=== PATIENT | female | born 1935 | race Caucasian/White ===

== ENCOUNTER 2021-06-24 02:56 | Outpatient (RCR) | payer MEDICARE, MEDICAID, SELFPAY ==
[2021-06-24] MEDS: Normal Saline Flush 10 ML SYR IVP (09:00)
[2021-06-24 09:34] LABS: Abs Immature Grans 0.15 10^3/uL (0.0-0.06); Absolute Basophil Count 0.06 10^3/uL (0.0-0.2); Absolute Eosinophil Count 0.06 10^3/uL (0.0-0.7); Absolute Lymphocyte Count 1.66 10^3/uL (1.2-3.4); Absolute Monocyte Count 1.03 10^3/uL (0.1-0.8); Absolute Neutrophil Count 2.64 10^3/uL (1.2-6.7); Basophils % 1.1; Eosinophils % 1.1; HCT 40.1 % (36.0-46.0); Immature Grans % 2.7; Lymphocytes % 29.6; MCH 30.2 pg (27.0-33.0); MCHC 32.4 % (32.0-36.0); MPV 9.7 fL (8.0-11.0); Monocytes % 18.4; Neutrophils % 47.1; Nucleated RBC 0 %; Platelet Count 271 10^3/uL (130-400); RBC 4.31 10^6/uL (3.93-5.22); RDW 13.6 % (11.7-14.6); RDW-SD 46.5 fL
[2021-06-24 10:15] LABS: Magnesium 1.7 mg/dL (1.8-2.4)
[2021-06-24 10:27] LABS: ALT 28 U/L (14-59); AST 20 U/L (15-37); Albumin 3.3 g/dL (3.4-5.0); Alkaline Phosphatase 88 U/L (46-116); Anion Gap 8.7 mmol/L (3-11); BUN 22 mg/dL (7-18); Bilirubin, Total 0.5 mg/dL (0.2-1.0); CO2 26.3 mmol/L (21.0-32.0); CREATININE 0.7 mg/dL (0.55-1.02); Calcium 9.2 mg/dL (8.5-10.1); Chloride 107 mmol/L (98-107); FREE T4 1.39 ng/dL (0.76-1.46); Glucose 112 mg/dL (74-106); Potassium 4.1 mmol/L (3.5-5.1); Sodium 142 mmol/L (136-145); TSH 1.58 uIU/mL (0.36-3.74); Total Protein 6.8 g/dL (6.4-8.2)
== END 2021-06-25 23:59 | disposition home or self-care (01) ==
LOC: INF 02:56
PROVIDERS: PCP Internal Medicine; Visit Provider Internal Medicine Medical Oncology
DX: C34.92 Malignant neoplasm of unspecified part of left bronchus or lung (principal); Z79.899 Other long term (current) drug therapy; Z45.2 Encounter for adjustment and management of vascular access device
CPT/HCPCS: 36591; 80053; 83735; 84439; 84443; 85025

== ENCOUNTER 2021-07-15 03:40 | Outpatient (RCR) | payer MEDICARE, MEDICAID, SELFPAY ==
--- OUTSIDE RECORDS SUMMARY | 2021-07-15 03:44 | XMS_ITS | Encounter Summary ---
:1935 Author Care Team Providers Name Role Phone Thaddeus Willis DO Primary Care Provider [phone] Michelle Peña MD Electrocardiograph Operator [phone] Rowdy Rose MD General Surgeon [phone] Demetrio Lao MD General Surgeon [phone] Reason for Visit None recorded. Assessment and Plan 1. Atherosclerosis of coronary a rtery without angina pectoris Cath in 1994 showed 65% RCA le mikki. Treated medically. She's not had recent chest pain. With new chest pain which is none exerti onal. She does have exertional dyspnea. She cannot walk far due to fatigue, has been off balance and has been unwilling to associate with anyone. ? nitroglycerin 0.4 mg subli ngual tablet ? electrocardiogram ? circuit rider referral - Yen paredes seen by Dr. Garza 2004 2. Dizziness He benefits from meclizine for this. Also refer her to physical therapy. ? meclizine 25 mg tablet ? physical therapist referra l 3. Dyspnea We will check labs to assess h er breathing difficulty. ? BNP (B-type natriuretic pe ptide), prohormone N-terminal, quant, immunoassay, blood ? CRP, high sensitivity, ser um or plasma ? CBC w/ auto diff 4. Disorder of vitamin B12 Does complain of some peripher al neuropathy and will check a B12 level. ? vitamin B12, serum 5. Nausea and vomiting We will assess this further wi th liver and pancreatic enzyme levels. ? CMP, serum or plasma ? lipase, serum or plasma 6. Hyponatremia NB: Sodium came back dangerous ly low at 118 mg/dL. She was referred to the emergency department. Discussion Note: None recorded.Patient educational handouts: No information available. Plan of Care Reminders Provider Appointments Consult 40 Michelle Hussein 07/17/2021 MD [place] 2:40PM ? Awv 40 Thaddeus Contreras DO 08/20/2021 10:40AM Lab BNP (B-type [facility] Natriuretic Peptide), 04/30/2021 Hospital L ab (Internal) Prohormone N-terminal, Quant, Immunoassay, Blood ? CRP, High [place] [facility] Sensitivity, Serum or Plasma 04/30/2021 Hos pital Lab (Internal) ? Vitamin B12, Serum [facility] 04/30/2021 Hospital Lab (In [facility]) ? CBC W/ Auto Diff [facility] 04/30/2021 Hospital Lab (In [facility]) ? CMP, Serum or [facility] Plasma 04/30/2021 Hospital Lab (In [facility]) ? Lipase, Serum or [facility] Plasma 04/30/2021 Hospital Lab (In [facility]) Referral Electrocardiograph Operator Cuate Stoll MD Referral 04/30/2021 ? Physical Therapist [facility] Referral 04/30/2021 [facility] Re[facility] Services Procedures None recorded. ? ? Surgeries None recorded. ? ? Imaging Electrocardiogram [facility] 04/30/2021 [place] Medications Name Start Date ? ? amlodipine 2.5 mg tablet 05/02/2021 1 tablet every day by oral route for 90 days. aspirin 81 mg chewable tablet 05/08/2021 Chew 1 tablet every day by oral route. atorvastatin 40 mg tablet 05/02/2021 2 tablets every day by oral route for 90 days. clopidogrel 75 mg tablet ? TAKE ONE TABLET BY MOUTH EVERY DAY Colace 100 mg capsule ? Take 1 capsule every day by oral route as needed. duloxetine 60 mg capsule,delayed release ? TAKE ONE CAPSULE BY MOUTH EVERY DAY gabapentin 300 mg capsule 05/02/2021 1 capsule 3 times a day by oral route for 90 days. Glucosamine Chondroit Complx Advan 750 mg-100 mg-125 m g-1.65 mg tablet 05/02/2021 Take 1 tablet every day by oral route. levothyroxine 88 mcg tablet 05/02/2021 1 tablet every day by oral route for 90 days. loperamide 2 mg capsule 05/24/2021 Take 1 capsule every day by oral route as needed. lorazepam 0.5 mg tablet ? TAKE ONE TABLET BY MOUTH AT BEDTIME NEEDED metoprolol succinate ER 100 mg tablet,extended release 24 hr ? TAKE ONE TABLET BY MOUTH EVERY DAY metoprolol succinate ER 50 mg tablet,extended release 24 hr ? Take 1 tablet every day by oral route. Nexium 40 mg capsule,delayed release ? TAKE ONE CAPSULE BY MOUTH TWICE A DAY nitroglycerin 0.4 mg sublingual tablet 05/02/2021 1 tablet as needed by sublingual route. polyethylene glycol 3350 17 gram/dose oral powder 05/2021 Take 17 g by oral route as directed for 7 days. urea 15 gram oral powder packet 05/08/2021 Take 1 packet twice a day by oral route for 120 days. Vitamin B-12 1,000 mcg tablet 05/02/2021 Take 1 tablet by oral route for 30 days. Notes: 06/06/21 Med Rec Medications Administered None recorded. Vitals Height Weight BMI Blood Pressure 5 ft 1 in 135 lbs 25.5 kg/m2 140/70 mm[Hg] Results Lab Results Date Name Specimen Result Interpretation Description Value Range Status Address ? 04/30/2021 CBC W/ Auto BLD ? Wbc 7.1 5.0-10.0 Final [place] Diff 10*3/uL 10*3/uL [facility] L ab (Internal) : [address] ? ? BLD ? Rbc 4.84 4.10-5.30 Final [place] 10*6/uL 10*6/uL [facility] (Internal) : [address] ? ? BLD ? Hgb 14.6 12.0-16.0 Final [place] g/dL g/dL [facility] (Internal) : [address] ? ? BLD ? Hct 42.8 % 37.0-47.0 Final [facility] L [facility] (Internal) : [address] ? ? BLD ? Mcv 88.4 fL 80.0-96.0 Final [place] fL [facility] (Internal) : [address] ? ? BLD ? Mch 30.2 pg 26.0-32.0 Final [place] pg [facility] (Internal) : [address] ? ? BLD ? Mchc 34.1 31.0-35.0 Final [place] g/dL g/dL [facility] (Internal) : [address] ? ? BLD ? Rdw 12.1 % 11.5-14.5 Final [facility] L [facility] (Internal) : [address] ? ? BLD ? Plt 447 130-450 Final [place] 10*3/uL 10*3/uL [facility] L [facility] (Internal) : [address] ? ? BLD ? Anc 3.91 ? Final [place] 10*3/uL [facility] (Internal) : [address] ? ? BLD ? Nlr 1.71 0.00-3.20 Final [facility] (Internal) : [address] ? ? BLD ? Neutro 55.0 % 40.0-75.0 Final [facility] L [facility] (Internal) : [address] ? ? BLD ? Lymph 32.3 % 20.0-50.0 Final [facility] L [facility] (Internal) : [address] ? ? BLD ? [place]cock 9.4 % 2.0-10.0 Final [facility] L [facility] (Internal) : [address] ? ? BLD ? Eos 2.4 % 1.0-6.0 % Final [facility] (Internal) : [address] ? ? BLD ? Baso 0.6 % 0.0-1.0 % Final [facility] (Internal) : [address] ? ? BLD ? Ig 0.3 % 0.0-0.9 % Final [facility] (Internal) : [address] 04/30/2021 CRP, High S ? Rcrp <0.10 0.10-0.30 Final [place] Sensitivity, mg/dL mg/dL Coun try Serum or Hospital Lab Plasma (Internal) : [address] 04/30/2021 Lipase, Serum S ? Lip 136 U/L 23-300 [facility] [place] or Plasma U/L [facility] (Internal) : [address] t 04/30/2021 CMP, Serum or S ? g/r 98 mg/dL 74-106 Jeny l [place] Plasma mg/dL [facility] (Internal) : [address] ? ? S ? Bun 8 mg/dL 7-17 Final [place] mg/dL [facility] (Internal) : [address] ? ? S ? Crea 0.60 0.52-1.04 [facility] mg/dL mg/dL [facility] (Internal) : [address] t ? ? S ? Ca 9.4 8.4-10.2 [facility] mg/dL mg/dL [facility] (Internal) : [address] t ? ? S CRITICAL Na 118 137-145 [facility] LOW mmol/L mmol/L [facility] (Internal) : [address] ? ? S ? K 5.0 3.5-5.1 [facility] mmol/L mmol/L [facility] (Internal) : [address] ? ? S Low Cl 84 98-107 [facility] mmol/L mmol/L [facility] (Internal) : [address] ? ? S ? Tco2 26.0 22.0-30.0 [facility] mmol/L mmol/L [facility] (Internal) : [address] ? ? S ? Tp 6.9 g/dL 6.3-8.2 [facility] g/dL [facility] (Internal) : [address] ? ? S ? Alb 4.1 g/dL 3.5-5.0 [facility] [place] g/dL [facility] (Internal) : [address] ? ? S ? Tbil 0.8 0.2-1.3 [facility] mg/dL mg/dL [facility] (Internal) : [address] ? ? S ? Alp 73 U/L 38-126 [facility] U/L [facility] (Internal) : [address] ? ? S ? Alt 23 U/L 9-52 U/L [facility] (Sgpt) [facility] (Internal) : [address] ? ? S High Ast 40 U/L 14-36 U/L [facility] (Sgot) [facility] (Internal) : [address] 04/30/2021 BNP (B-type S ? Nt-prob 232 0-450 [facility] Natriuretic suspect artist supervisor pg/mL pg/mL Count ry Peptide), Hospita l Lab Prohormone (Inter nal): N-terminal, [address], [place] Immunoassay, Blood 04/30/2021 Vitamin B12, S ? Vit B12 650.0 239.0-931 Fi nal [place] Serum pg/mL .0 pg/mL [facility] L [facility] (Internal) : [address] Allergies Code Code System Name Reaction Severity Onset Penicillins ? ? ? 126096 RxNorm Prilosec Abdominal Pain ? ? Problems Name Status Onset Date Source ? Dysphagia Active 07/26/2018 ? Hiatal Hernia Active 07/21/2019 ? Hypertensive Disorder Active 05/03/2020 ? Small Cell Carcinoma Active 05/21/2021 ? Hypothyroidism Active ? History Hyperlipidemia Active ? History Depressive Disorder Active ? History Insomnia Active ? History Supraventricular Tachycardia Active ? His tory Irritable Bowel Syndrome with Diarrhea Active ? History Arthropathy Active ? History Atherosclerosis of Coronary Artery Active ? History without Angina Pectoris Bilateral Carpal Tunnel Syndrome Active ? History Procedures Date Name Performed by ? 05/02/2021 Biopsy of Lung Information not avai lable Notes: small cell carcinoma 04/09/2020 Egd Information not avai lable Notes: acute esophagitis; 08/19/2018 Hiatal hernia 08/19/2018 Colonoscopy Information not avai lable Notes: Diverticular disease; 4: 01/04/2009: 11/27/2004 07/02/2010 Cataract Surgery Information not avai lable Notes: bilateral ? Hernia Repair Inguinal Information not a vailable Notes: [id number], 1989 ? Total Hysterectomy Information not avai lable Notes: with MMK? 1998 ? Appendectomy Information not avai lable Notes: [id number] ? Tubal Ligation Information not avai lable Notes: 1966 04/12/2021 XR, Esophagram [facility] (Internal) [address] [place] [address] (Work Place) 04/22/2021 XR, Esophagram [facility] (Internal) [address] [place] [address] (Work Place) 04/30/2021 Electrocardiogram [facility] [address] [place] [address] ([address]) Vaccine List Vaccine Type COVID-19, mRNA, LNP-S, PF, 100 mcg/0.5 m L dose 11/26/2020 12/26/2020 07/09/2021?0.5 mL influenza, high dose seasonal 08/28/2016?0.5 mL 09/11/2017?0.5 mL influenza, injectable, quadrivalent 07/26/2020 influenza, seasonal, injectable 08/27/2005 08/30/2007 08/09/2008 10/11/2009 09/08/2015?0.5 mL influenza, seasonal, injectable, preserv ative free 11/04/2010?0.5 mL 08/12/2011?0.5 mL 10/20/2012?0.5 mL 09/05/2013?0.5 mL 08/29/2014?0.5 mL influenza, trivalent, adjuvanted 09/07/2018?0.5 mL 07/21/2019?0.5 mL pneumococcal conjugate PCV 13 11/19/2015?0.5 mL pneumococcal polysaccharide PPV23 06/26/2003 Td (adult), adsorbed 02/24/2000 Tdap 05/26/2012?0.5 mL Social History Tobacco Smoking Status Former Smoker Notes: Quit in 1994, smoked 1ppd x25 years Are you currently employed? N Have you used IV drugs? N Are you blind or do you have N Notes: c orrective lenses/ difficulty seeing? reading What is your code status? 0 What was the date of your most 04/30/2021 recent tobacco screening? Do you have an advanced directive? N Do you feel safe at home? Y What is your exercise level? Occasional Notes: s hort walks Did the fall result in an injury? Y Note s: right ankle bruise Live alone or with others? alone Notes: wid owed What is your level of alcohol Moderate Notes: 2-3 beer or wine daily consumption? Which of your hands is dominant? Right Animal exposure? N Education 10 Are you passively exposed to N smoke? Hard of hearing or deaf in one or N both ears? What is your level of caffeine Moderate Notes: 1 soda daily, 2 cups of consumption? coffee daily Are there any guns present in your N home? What is your occupation? retired Have you fallen in the last 3 Y Notes: 04/06/2020 tripped in months? strawberry patch Family History Relation Problem Onset Age of Age Notes Father Family history of cancer (No 74 Col on Cancer Information) Father Heart disease (No 74 (No Notes) Information) Mother Family history of cancer (No 87 Clarissa g Cancer Information) Mother Postmenopausal (No N/A (No Notes) osteoporosis Information) Sister Postmenopausal (No N/A (No Notes) osteoporosis Information) Sister Family history of cancer (No N/A Jennie ast Cancer Information) Sister Celiac disease (No N/A (No Notes) Information) Sister Dementia (No N/A (No Notes) Information) Sister Parkinson's disease (No N/A (No Note s) Information) Sister Family history of stroke (No N/A (No Notes) Information) Sister Heart disease (No N/A (No Notes) Information) Daughter Family history of cancer (No N/A Col on Cancer Information) Brother Hypothyroidism (No N/A (No Notes) Information) Brother Celiac disease (No N/A (No Notes) Information) Functional Status No Impairment. Past Encounters 04/30/2021 Atherosclerosis of Coronary Artery witho ut Angina Pectoris; Dizziness; Dyspnea; Disorder of Vitamin B12; Nausea and Vomiting; Hyponatremia Thaddeus Willis, DO: [address] [place] [phone], Ph. History of Present Illness Note: <p>04/30/2021:</p><p>Pt is presenting with dizziness that has been going on fora while now but it is getting progressively worse (at times she feels like she may fall down). Patient is very weak and towards the end of the day she is having a very hard time functioning. 05/16 has apt with surgeon. She is also experiencing a lot of nausea. Has been taking maalox which has been veryhelpful. Has a very poor appetite recently. Has vomited a few times due to feeling very nauseous. She has been getting very bad chest pain while sitting.</p><p>
</p><p>Chest pain seems related to her swallowing issues.</p><p>
</p><p>She also has complained of chest pain in her left upper chest.</p><p>
</p><p>Daughter's are accompanying her today, and feel that she is much worse. This has been ongoing over the last three weeks.</p> Review of Systems ? Notes: <p>Currently, denies chest p ain, dyspnea, palpitations, dizziness, headaches, sudden visual changes, cough , or new peripheral edema. Has been somewhat weak and shaky
</p> Physical Exam ? Notes: <p>General: Alert and orient ed woman who appears stated age in no acute distress; full command of co gnitive faculties; chronically tremulous
HEENT: Normocephalic; normal facial movements; extraocular muscular movements apparently normal
Cardiov ascular: S1-S2; no noted murmurs, rubs or gallops.
Pulmonary: Good air movement bilaterally with no wheezes, rales or rhonchi
Skin: Warm and dry; no rashes
Neurological: Normal gait; rises from seated to standin g position easily; cranial nerves 3, 4, 6, 7, 8, 11, and 12 within normal reyez its; mildly tremulous
Extremities: No edema; no obvious arthropathy
Ps ych: Alert and interactive; euthymic</p>
--- OUTSIDE RECORDS SUMMARY | 2021-07-15 03:44 | XMS_ITS | Encounter Summary ---
:1935 Author Care Team Providers Name Role Phone Thaddeus Willis DO Primary Care Provider [phone] Michelle Peña MD Flight Steward [phone] Rowdy Rose MD General Surgeon [phone] Demetrio Lao MD General Surgeon [phone] Reason for Visit Telehealth - Video/Zoom Assessment and Plan 1. 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 She will undergo chemotherapy with carboplatin/et oposide/atezolizumab. Currently no radiation therapy is planned. Her oncologist discu ssed with her that this is not a curable disease. 2. Headache Reports a headache after her f irst dose of chemotherapy but none since. 3. Anxiety She continues to suffer with a nxiety but is loath to use her lorazepam. Her family continues to encourage her to do this. 4. Palpitations Dylan is currently wearing an event monitor. She reports that this is to assess her palpitations and be sure she is not certain with atrial fibrillation. 5. Dysphagia Mary Anne was evaluated by Dr. Davida covington in March 2020, and biopsies were taken. She had esophagitis, but no fungal or ma lignancy signs. Continues to have some trouble with larger pills. There is not been a clear connection between her symptoms and her cancer. 6. Hyponatremia Sodium was back in the normal range when checked recently. She is on urea (which helps with osmotic diuresis and s odium reabsorption) and was treated as well with a fluid restriction when she was in the hospital. She will be getting regular blood work with her Discussion Note: None recorded.Patient educational handouts: No information available. Plan of Care Reminders Provider Appointments Consult 40 Michelle Hussein 07/17/2021 MD [place] 2:40PM ? Awv 40 Thaddeus Contreras DO 08/20/2021 10:40AM Lab None ? ? recorded. Referral None ? ? recorded. Procedures None ? ? recorded. Surgeries None ? ? recorded. Imaging None ? ? recorded. Medications Name Start Date ? ? amlodipine [...] Rec Medications Administered None recorded. Vitals Height 5 ft 1 in Results Lab Results None recorded. Allergies Code Code System Name Reaction Severity Onset Penicillins ? ? ? 123623 RxNorm Prilosec Abdominal Pain ? ? Problems [...] Repair Inguinal Information not a vailable Notes: [id number], 1989 ? Total Hysterectomy Information not avai lable Notes: with MMK? 1997 ? Appendectomy Information not avai lable Notes: [id number] ? Tubal Ligation Information not avai lable Notes: 1963 Vaccine List Vaccine Type COVID-19, mRNA, LNP-S, [...] Information) Functional Status No Impairment. Past Encounters 06/06/2021 Small Cell Carcinoma of Lung; Headache; Anxiety; Palpitations; Dysphagia; Hyponatremia Thaddeus Willis, DO: [address] [facility] [place] [address], Ph. History of Present Illness Note: <div>Patient was discharged from [facility] on 05/08/21 with a recent diagnosis of left lung small cell lung CA. </div><div>Patient reports hard time eating or drinking . Patient reportsnot being nauseous but will have the feeling like food or drink is coming back up. Patient also reports feeling of reflux at night when lying down. Palpitations will occur intermittently, will have periods of SOB, unable to walk for long periods of time. Energy level seems to be better in the morningsthen will go down towards the evenings. </div><div>
</div><div>Patient will report periods of headaches, Tylenol did not really help. There was one day of left side face pain after getting home from the hospital. Patient reports she has been very jittery since being home. She has had a history of anxiety in the past. </div><div>
</div><div>Dylan has been taking Mylanta, which seems to be helpful. </div><div>
</div><div>Lorazepam has been helpful when she is anxious. </div><div>
&lt ;/div><div>She is currently wearing a heart monitor. Reportedly there was an episode of a-fib noted on an EKG when she was in the hospital. We've never identified that here. </div><div >
</div><div>
This visit was performed virtually using synchronous audio-visual connection via Zoom. As such, the physical examination is necessarily limited. The risksand benefits of the use of this alternative platform were discussed with the patient and or guardianand verbal consent was obtained. My assessment and plans are based on such examination. Further evaluation, including in-person examination, may be needed depending on the response to management or today's recommendation.

The patient is {{home* in the office}}.

The provider is {{home in the office*}}.

The patient has been positively identified and has consented to a video visit.

The time spentin counseling and coordination of care was 15 minutes
</div> Review of Systems ? Notes: Anxiety has been somewhat pr ominent; otherwise, denies chest pain, dyspnea, palpitations, dizziness, hea daches, sudden visual changes, cough, or new peripheral edema. Physical Exam ? Notes: Telemedicine visit; physical exam not done; patient does appear to be in her usual state and reasonable c ommand of her cognitive faculties
--- OUTSIDE RECORDS SUMMARY | 2021-07-15 03:44 | XMS_ITS ---
:1935 Author Care Team Providers Name Role Phone THADDEUS WILLIS Primary Care Provider [phone] MARY ROSE MD General Surgeon [phone] STACIA NGUYEN MD General Surgeon [phone] SALENA CHRISTENSEN MD Pumper Gauger Apprentice [phone] Allergies Code Code System Name Reaction Severity Status Onset Penicillins ? ? Active ? 346586 RxNorm Prilosec Abdominal Pain ? Active ? Medications Name Status Start Date Stop Date ? ? amlodipine 2.5 mg tablet Active 05/02/2021 Not bari ilable 1 tablet every day by oral route for 90 days. Anti-Diarrheal (loperamide) 2 Completed ? mg tablet aspirin 325 mg tablet,delayed release Completed 08/30/2007 08/30/2007 1 (one) Tab DR: Daily aspirin 81 mg chewable tablet Active 05/08/2021 No t available Chew 1 tablet every day by oral route. atorvastatin 40 mg tablet Active 05/02/2021 Not av ailable 2 tablets every day by oral route for 90 days. atorvastatin 80 mg tablet Completed ? 2018 Calcium + D 600 mg (1,500 mg)-200 unit tablet Completed ? 04/30/2021 Take 1 tablet twice a day by oral route. Celebrex 200 mg capsule Completed 12/14/2014 12/14/19 15 1 (one) Cap: every other day Celexa 10 mg tablet Completed 11/03/2006 05/22/2007 1 (one) Tablet: Daily Celexa 20 mg tablet Completed 05/24/2009 05/24/2009 1 (one and a half) Tablet: daily clopidogrel 75 mg tablet Active ? Not bari ilable TAKE ONE TABLET BY MOUTH EVERY DAY Colace 100 mg capsule Active ? Not availa ble Take 1 capsule every day by oral route as needed. cyclobenzaprine 5 mg tablet Unknown ? Not available Take 1 tablet 3 times a day by oral route. doxycycline hyclate 100 mg Completed ? 03/12 capsule duloxetine 30 mg Completed ? 03/12/2018 capsule,delayed release duloxetine 60 mg capsule,delayed release Active ? Not available TAKE ONE CAPSULE BY MOUTH EVERY DAY E-Z Spacer Completed 05/10/2010 03/11/2011 1 Device: four times daily fexofenadine 180 mg tablet Completed 10/15/200701/26 1 (one) Tablet: Daily Fish Oil 340 mg-1,000 mg capsule Completed 12/14/2014 05/22/2015 1 Capsule: twice a day fluconazole 150 mg tablet Completed ? 2020 fluconazole 200 mg tablet Completed ? 2017 folic acid 1 mg tablet Completed 08/12/2011 1 1 (one) Tablet: daily gabapentin 300 mg capsule Active 05/02/2021 Not av ailable 1 capsule 3 times a day by oral route for 90 days. Glucosamine Chondroit Complx Advan 750 mg-100 mg-125 mg-1.65 mg tablet Active 05/02/2021 Not available Take 1 tablet every day by oral route. levothyroxine 88 mcg tablet Active 05/02/2021 Not available 1 tablet every day by oral route for 90 days. loperamide 2 mg capsule Active 05/24/2021 Not avai lable Take 1 capsule every day by oral route as needed. lorazepam 0.5 mg tablet Active ? Not avai lable TAKE ONE TABLET BY MOUTH AT BEDTIME NEEDED magnesium oxide 400 mg (241.3 Completed ? mg magnesium) tablet meclizine 25 mg tablet Completed ? Take 1 tablet 3 times a day by oral route as needed. Metamucil Completed ? 05/02/2021 as directed metoclopramide 5 mg tablet Completed ? 02/05 metoprolol succinate ER 100 mg tablet,extended release 24 hr Act harley ? Not available TAKE ONE TABLET BY MOUTH EVERY DAY metoprolol succinate ER 50 mg tablet,extended release 24 hr Acti ve ? Not available Take 1 tablet every day by oral route. metoprolol tartrate 25 mg tablet Completed ? 04/30/2021 TAKE ONE TABLET BY MOUTH EVERY DAY NEEDED FOR RACING HEART Nexium 40 mg capsule,delayed release Active ? Not available TAKE ONE CAPSULE BY MOUTH TWICE A DAY nitroglycerin 0.4 mg sublingual tablet Active 1 Not available 1 tablet as needed by sublingual route. Norvasc 5 mg tablet Completed 02/19/2016 04/06/2017 1 (one) Tablet: daily OsmoPrep 1.5 gram (1.102-0.398) tablet Completed 4 01/02/2014 1 Tablet: As directed oxycodone-acetaminophen 5 Active ? Not av ailable mg-325 mg tablet polyethylene glycol 3350 17 Active 05/02/2021 Not available gram/dose oral powder prednisone 20 mg tablet Completed ? 09/07/20 18 Take 2 tablets every day by oral route for 5 days. Premarin 0.3 mg tablet Completed 04/25/2005 6 1 (one) Tablet: Daily Premarin 0.625 mg tablet Completed 09/13/2007 007 1 Tablet: daily Protonix 40 mg tablet,delayed release Completed 08/03/2007 08/03/2007 1 (one) Tab DR: Daily rabeprazole 20 mg tablet,delayed release Completed 005 06/05/[address]: Daily Restasis 0.05 % eye drops in a Completed ? 0 05/03/2020 dropperette sulfamethoxazole 800 Completed ? 04/30/2021 mg-trimethoprim 160 mg tablet terconazole 0.8 % vaginal cream Completed ? 04/30/2021 INSERT ONE APPLICATORFUL VAGINALLY EVERY DAY terconazole 80 mg vaginal suppository Completed ? 04/30/2021 Insert 1 suppository every day by vaginal route for 3 days. Tessalon Perles 100 mg capsule Completed 04/11/2014 0 04/21/2014 1 (one) Capsule: three times daily triamcinolone acetonide 0.1 % Active ? No t available topical cream urea 15 gram oral powder packet Active 05/08/2021 Not available Take 1 packet twice a day by oral route for 120 days. Vitamin B-12 1,000 mcg tablet Active 05/02/2021 N ot available Take 1 tablet by oral route for 30 days. Zetia 10 mg tablet Completed 12/31/2009 12/31/2009 1 (one) Tablet: daily Zithromax Z-Vincent 250 mg tablet Completed 05/03/2010 1 Tablet: See note below Notes: 06/06/21 Med Rec Problems Name Status Onset Date Source ? Dysphagia Active 07/26/2018 ? Urinary Tract Infectious Disease Unknown 10/22/2018 External Hiatal Hernia Active 07/21/2019 ? Hypertensive Disorder Active 05/03/2020 ? Small Cell Carcinoma Active 05/21/2021 ? Lyme Disease Unknown ? History Dermatophytosis of the Body Unknown ? Hist ory Hypothyroidism Active ? History Biotin Deficiency Disease Unknown ? Histor y Hyperlipidemia Active ? History Obesity Unknown ? History Overweight Unknown ? History Alcohol Abuse Unknown ? History Restlessness and Agitation Unknown ? Histo ry Depressive Disorder Active ? History Insomnia Active ? History Retinal Hemorrhage Unknown ? History Tear Film Insufficiency Unknown ? History Coronary Arteriosclerosis in [place] Unknown ? History Artery Atrial Flutter Unknown ? History Supraventricular Tachycardia Active ? His tory Xerostomia Unknown ? History Irritable Bowel Syndrome with Active ? Hi story Diarrhea Blood in Urine Unknown ? History Arthropathy Active ? 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 H istory Low Back Pain Unknown ? History Backache Unknown ? History Hand Pain Unknown ? History Disorder of Bone Unknown ? History Eruption Unknown ? History Tachycardia Unknown ? History Heart Murmur Unknown ? History Chest Pain Unknown ? History Diarrhea Unknown ? History Dysuria Unknown ? History Increased Frequency of Urination Unknown ? History Abdominal Pain Unknown ? History Abnormal Urine Unknown ? History Active Immunization Unknown ? History Procedure by Method Unknown ? History Atherosclerosis of Coronary Artery Active ? History without Angina Pectoris Menopause Present Unknown ? History Respiratory Crackles Unknown ? History Inflammatory Dermatosis Unknown ? History Radiology Result Abnormal Unknown ? Histor y Finding of Esophagus Unknown ? History Long-term Current Use of Drug Therapy Unknown ? History Bilateral Carpal Tunnel Syndrome Active ? History [...] Repair Inguinal Information not a vailable Notes: [id number], 1989 ? Total Hysterectomy Information not avai lable Notes: with MMK? 1998 ? Appendectomy Information not avai lable Notes: [id number] ? Tubal Ligation Information not avai lable Notes: 1966 03/12/2018 XR, Esophagram [facility] (Internal) [address] [place] [address] (Work Place) 07/02/2018 XR, Esophagram [facility] (Internal) [address] [place] [address] (Work Place) 11/09/2018 US, Renal [facility] (Internal) [address] [place] [address] (Work Place) 11/25/2018 CT, Abdomen + Pelvis, W/o Contrast [facility] Radiology (Internal) [address] [place] [address] (Work Place) 02/15/2019 MAMMO, Screening, Tomosynthesis, [facility] Radiology (Internal) Bilateral [address] [place] [address] (Work Place) 02/15/2019 US, Echocardiogram P_visiting Physician s [address] [place] [address] (Work Place) 04/12/2021 XR, Esophagram [facility] (Internal) [address] [place] [address] (Work Place) 04/22/2021 XR, Esophagram [facility] (Internal) [address] [place] [address] (Work Place) 04/30/2021 Electrocardiogram [facility] [address] [place] [address] (Work Place) Results Lab Results Date Name Specimen Result Interpretation Description Value Range Status Address ? 06/14/2021 CBC W/ BLD Low Wbc 3.5 10*3/uL 5.0-10.0 Final [place] Auto Diff 10*3/uL [facility] (Internal) : [address] ? ? BLD ? Rbc 4.48 10*6/uL 4.10-5.30 Final N orth 10*6/uL [facility] L ab (Internal) : [address] ? ? BLD ? Hgb 13.6 g/dL 12.0-16.0 Final [facility] g/dL [facility] [address] ? ? BLD ? Hct 41.5 % 37.0-47.0 Final [facility] L ab (Internal) : [address] t ? ? BLD ? Mcv 92.6 fL 80.0-96.0 Final [facility] (Internal) : [address] t ? ? BLD ? Mch 30.4 pg 26.0-32.0 Final [place] pg [facility] (Internal) : [address] t ? ? BLD ? Mchc 32.8 g/dL 31.0-35.0 Final Nort h g/dL [facility] (Internal) : [address] t ? ? BLD ? Rdw 13.0 % 11.5-14.5 Final [facility] L [facility] (Internal) : [address] t ? ? BLD ? Plt 290 10*3/uL 130-450 Final Nort h 10*3/uL [facility] ([facility] : [address] 06/14/2021 Magnesium, S ? mg 1.6 mg/dL 1.6-2.3 Final [place] QN, Serum mg/dL [facility] Lab (Internal) : [address] 06/14/2021 CMP, Serum S ? g/r 96 mg/dL 74-106 Final [place] or Plasma mg/dL [facility] (Internal) : [address] t ? ? S High Bun 21 mg/dL 7-17 Final [place] mg/dL [facility] (Internal) : [address] t ? ? S ? Crea 0.60 mg/dL 0.52-1.04 Final Nor th mg/dL [facility] (Internal) : [address] t ? ? S ? Ca 9.4 mg/dL 8.4-10.2 Final [place] mg/dL [facility] (Internal) : [address] t ? ? S ? Na 143 mmol/L 137-145 Final [place] mmol/L [facility] (Internal) : [address] t ? ? S ? K 3.8 mmol/L 3.5-5.1 Final [place] mmol/L [facility] (Internal) : [address] t ? ? S High Cl 108 mmol/L 98-107 Final [place] mmol/L [facility] (Internal) : [address] t ? ? S ? Tco2 24.0 mmol/L 22.0-30.0 Final No rth mmol/L [facility] (Internal) : [address] t ? ? S ? Tp 6.5 g/dL 6.3-8.2 Final [place] g/dL [facility] (Internal) : [address] t ? ? S ? Alb 3.8 g/dL 3.5-5.0 Final [place] g/dL [facility] (Internal) : [address] t ? ? S ? Tbil 0.4 mg/dL 0.2-1.3 Final [place] mg/dL [facility] L ab (Internal) : [address] t ? ? S ? Alp 64 U/L 38-126 Final [place] U/L [facility] L ab (Internal) : [address] t ? ? S ? Alt 21 U/L 9-52 U/L Final [place] (Sgpt) [facility] L ab (Internal) : [address] t ? ? S ? Ast 23 U/L 14-36 U/L Final [place] (Sgot) [facility] L ab (Internal) : [address] 06/14/2021 Differenti BLD Low Polys 38 % 40-75 % Final N orth al, [facility], [facility] Lab Blood (Internal) : [address] ? ? BLD ? Bands 0 % 0-5 % Final [facility] L ab (Internal) : [address] ? ? BLD High Lymphs 53 % 20-50 % Final [facility] L ab (Internal) : [address] t ? ? BLD ? Hardeman 9 % 2-10 % Final [facility] L ab (Internal) : [address] t ? ? BLD ? Eos 0 % 0-6 % Final [facility] L ab (Internal) : [address] t ? ? BLD ? Baso 0 % 0-1 % Final [facility] L ab (Internal) : [address] t ? ? BLD ? Atyp 0 % ? Final [facility] Hospital L ab (Internal) : [address] t ? ? BLD ? Plts, adequate adequate Final [place] Est. [facility] (Internal) : [address] t ? ? BLD ? RBC normal normal Final [place] Morpholog [facility] L [facility] (Internal) : [address] t 06/14/2021 Neutrophil BLD ? Anc-manu 1.33 10*3/uL ? Final [place] Count, [facility] Lab (Anc), (Internal) : Blood [address] 06/14/2021 Nlr-manual BLD ? Nlr - 0.72 0.00-3.20 Final [facility] L ab (Internal) : [address] t 05/31/2021 CBC W/ BLD ? Wbc 8.2 10*3/uL 5.0-10.0 Final [place] Auto Diff 10*3/uL [facility] Hospital L ab (Internal) : [address] t ? ? BLD ? Rbc 4.74 10*6/uL 4.10-5.30 Final N orth 10*6/uL [facility] (Internal) : [address] ? ? BLD ? Hgb 14.3 g/dL 12.0-16.0 Final Nort h g/dL [facility] (Internal) : [address] t ? ? BLD ? Hct 43.6 % 37.0-47.0 Final [facility] Hospital L ab (Internal) : [address] t ? ? BLD ? Mcv 92.0 fL 80.0-96.0 Final [facility] L ab (Internal) : [address] t ? ? BLD ? Mch 30.2 pg 26.0-32.0 Final [facility] pg [facility] ([facility] : [address] t ? ? BLD ? Mchc 32.8 g/dL 31.0-35.0 Final Nort h g/dL [facility] (Internal) : [address] t ? ? BLD ? Rdw 12.8 % 11.5-14.5 Final [facility] Hospital L ab (Internal) : [address] t ? ? BLD ? Plt 411 10*3/uL 130-450 Final Nort h 10*3/uL [facility] (Internal) : [address] t ? ? BLD ? Anc 4.66 10*3/uL ? Final Nort h [facility] (Internal) : [address] t ? ? BLD ? Nlr 1.85 0.00-3.20 Final [facility] L ab (Internal) : [address] ? ? BLD ? Neutro 57.2 % 40.0-75.0 Final [facility] L ab (Internal) : [address] t ? ? BLD ? Lymph 30.9 % 20.0-50.0 Final [facility] Hospital L ab (Internal) : [address] t ? ? BLD ? Hardeman 7.9 % 2.0-10.0 Final [facility] L ab (Internal) : [address] ? ? BLD ? Eos 3.2 % 1.0-6.0 % Final [facility] L ab (Internal) : [address] ? ? BLD ? Baso 0.6 % 0.0-1.0 % Final [facility] L ab (Internal) : [address] ? ? BLD ? Ig 0.2 % 0.0-0.9 % Final [facility] L [facility] (Internal) : [address] 05/31/2021 CMP, Serum S High g/r 110 mg/dL 74-106 Final [place] or Plasma mg/dL [facility] (Internal) : [address] ? ? S High Bun 24 mg/dL 7-17 Final [place] mg/dL [facility] (Internal) : [address] t ? ? S ? Crea 0.70 mg/dL 0.52-1.04 Final [facility] mg/dL [facility] (Internal[facility] : [address] t ? ? S ? Ca 9.4 mg/dL 8.4-10.2 Final [facility] mg/dL [facility] (Internal) : [address] t ? ? S ? Na 145 mmol/L 137-145 Final [facility] mmol/L [facility] (Internal) : [address] t ? ? S ? K 3.5 mmol/L 3.5-5.1 Final [facility] mmol/L [facility] (Internal) : [address] t ? ? S ? Cl 107 mmol/L 98-107 Final [place] mmol/L [facility] (Internal) : [address] t ? ? S ? Tco2 25.0 mmol/L 22.0-30.0 Final No rth mmol/L [facility] (Internal) : [address] t ? ? S ? Tp 6.8 g/dL 6.3-8.2 Final [facility] g/dL [facility] (Internal) : [address] t ? ? S ? Alb 3.9 g/dL 3.5-5.0 Final [facility] g/dL [facility] (Internal) : [address] t ? ? S ? Tbil 0.3 mg/dL 0.2-1.3 Final [facility] mg/dL [facility] (Internal) : [address] t ? ? S ? Alp 65 U/L 38-126 Final [place] U/L [facility] : [address] ? ? S ? Alt 17 U/L 9-52 U/L Final [place] (Sgpt) [facility] (Internal[facility] : [address] t ? ? S ? Ast 29 U/L 14-36 U/L Final [place] (Sgot) [facility] ([facility] : [address] t 05/31/2021 Magnesium, S Low mg 1.2 mg/dL 1.6-2.3 Final [place] QN, Serum mg/dL [facility] Lab (Internal) : [address] t 05/31/2021 TSH, Serum S Low Tsh 0.36 0.47-4.68 Final [place] or Plasma u[IU]/mL u[IU]/mL [facility] Hospital L ab (Internal) : [address], [place] 05/31/2021 Troponin S ? Trop <0.06 NG/mL 0.00-0.06 Fin al [place] I, Serum NG/mL [facility] Lab (Internal) : [address] t 05/10/2021 CMP, Serum S High g/r 117 mg/dL 74-106 Final [place] or Plasma mg/dL [facility] (Internal) : [address] t ? ? S High Bun 26 mg/dL 7-17 Final [place] mg/dL [facility] (Internal) : [address] t ? ? S ? Crea 0.60 mg/dL 0.52-1.04 Final [place] mg/dL [facility] (Internal) : [address] t ? ? S ? Ca 10.0 mg/dL 8.4-10.2 Final Nort h mg/dL [facility] (Internal) : [address] t ? ? S Low Na 132 mmol/L 137-145 Final [place] mmol/L [facility] (Internal) : [address] t ? ? S ? K 4.3 mmol/L 3.5-5.1 Final [place] mmol/L [facility] (Internal) : [address] t ? ? S Low Cl 95 mmol/L 98-107 Final [place] mmol/L [facility] L ab (Internal) : [address] t ? ? S ? Tco2 25.0 mmol/L 22.0-30.0 Final No rth mmol/L [facility] L [facility] (Internal) : [address] t ? ? S ? Tp 7.3 g/dL 6.3-8.2 Final [place] g/dL [facility] (Internal) : [address] t ? ? S ? Alb 4.3 g/dL 3.5-5.0 Final [place] g/dL [facility] (Internal) : [address] t ? ? S ? Tbil 0.9 mg/dL 0.2-1.3 Final [place] mg/dL [facility] L [facility] (Internal) : [address] ? ? S ? Alp 79 U/L 38-126 Final [place] U/L [facility] L [facility] (Internal) : [address] t ? ? S ? Alt 20 U/L 9-52 U/L Final [place] (Sgpt) [facility] (Internal) : [address] t ? ? S ? Ast 31 U/L 14-36 U/L Final [place] (Sgot) [facility] L [facility] (Internal) : [address] t 04/30/2021 CBC W/ BLD ? Wbc 7.1 10*3/uL 5.0-10.0 Final [place] Auto Diff 10*3/uL [facility] Hospital L ab (Internal) : [address] t ? ? BLD ? Rbc 4.84 10*6/uL 4.10-5.30 Final N orth 10*6/uL [facility] (Internal) : [address] t ? ? BLD ? Hgb 14.6 g/dL 12.0-16.0 Final Nort h g/dL [facility] L [facility] (Internal) : [address] t ? ? BLD ? Hct 42.8 % 37.0-47.0 Final [facility] Hospital L ab (Internal) : [address] t ? ? BLD ? Mcv 88.4 fL 80.0-96.0 Final [facility] Hospital L ab (Internal) : [address] t ? ? BLD ? Mch 30.2 pg 26.0-32.0 Final [place] pg [facility] (Internal) : [address] t ? ? BLD ? Mchc 34.1 g/dL 31.0-35.0 Final Nort h g/dL [facility] (Internal) : [address] t ? ? BLD ? Rdw 12.1 % 11.5-14.5 Final [facility] L ab (Internal) : [address] ? ? BLD ? Plt 447 10*3/uL 130-450 Final Nort h 10*3/uL [facility] (Internal) : [address] t ? ? BLD ? Anc 3.91 10*3/uL ? Final Nort [facility] (Internal) : [address] t ? ? BLD ? Nlr 1.71 0.00-3.20 Final [facility] L ab (Internal) : [address] ? ? BLD ? Neutro 55.0 % 40.0-75.0 Final [facility] L ab (Internal) : [address] t ? ? BLD ? Lymph 32.3 % 20.0-50.0 Final [facility] L ab (Internal) : [address] t ? ? BLD ? Hardeman 9.4 % 2.0-10.0 Final [facility] L ab (Internal) : [address] t ? ? BLD ? Eos 2.4 % 1.0-6.0 % Final [facility] L ab (Internal) : [address] t ? ? BLD ? Baso 0.6 % 0.0-1.0 % Final [facility] L ab (Internal) : [address] t ? ? BLD ? Ig 0.3 % 0.0-0.9 % Final [facility] L ab (Internal) : [address] 04/30/2021 CRP, High S ? Rcrp <0.10 mg/dL 0.10-0.30 Fi nal [place] Sensitivit mg/dL Countr y y, Serum Hospital Lab or Plasma (Insole Rounder al): [address] 04/30/2021 Lipase, S ? Lip 136 U/L 23-300 Final [facility] Serum or U/L [facility] Hospital L ab (Internal) : [address] 04/30/2021 CMP, Serum S ? g/r 98 mg/dL 74-106 Final [place] or Plasma mg/dL [facility] (Internal) : [address] t ? ? S ? Bun 8 mg/dL 7-17 Final [place] mg/dL [facility] ([facility]) : [address] t ? ? S ? Crea 0.60 mg/dL 0.52-1.04 Final [facility] mg/dL [facility] (Internal) : [address] t ? ? S ? Ca 9.4 mg/dL 8.4-10.2 Final [facility] mg/dL [facility] (Internal) : [address] t ? ? S CRITICAL Na 118 mmol/L 137-145 Final Nor th LOW mmol/L [facility] (Internal) : [address] t ? ? S ? K 5.0 mmol/L 3.5-5.1 Final [place] mmol/L [facility] (Internal) : [address] t ? ? S Low Cl 84 mmol/L 98-107 Final [place] mmol/L [facility] (Internal) : [address] t ? ? S ? Tco2 26.0 mmol/L 22.0-30.0 Final No rth mmol/L [facility] (Internal) : [address] t ? ? S ? Tp 6.9 g/dL 6.3-8.2 Final [place] g/dL [facility] (Internal) : [address] t ? ? S ? Alb 4.1 g/dL 3.5-5.0 Final [place] g/dL [facility] (Internal) : [address] t ? ? S ? Tbil 0.8 mg/dL 0.2-1.3 Final [place] mg/dL [facility] (Internal) : [...] (Internal) : [address] 04/30/2021 BNP S ? Nt-probn 232 pg/mL 0-450 Final [place] (B-type p pg/mL [facility] (Internal) : Peptide), [address] Prohormone Starr Shea N-terminal , Quant, Immunoassa y, Blood 04/30/2021 Vitamin S ? Vit B12 650.0 pg/mL 239.0-931 Fi nal [place] B12, Serum .0 pg/mL Coun [facility] Hospital L ab (Internal) : [address] 04/30/2021 Troponin S ? Trop <0.06 NG/mL 0.00-0.06 Fin al [place] I, Serum NG/mL [facility] or [facility] Lab (Internal) : [address] 04/30/2021 Urinalysis UR ? UA-color yellow pale Final [place] , yellow [facility] Dipstick, Hospita l Lab Reflex (Internal) : Micro [address] t ? ? UR ? UA-appea clear clear Final [place] r [facility] L ab (Internal) : [address] t ? ? UR ? UA-spec 1.015 1.003-1.0 Final [place] Grav 35 [facility] L ab (Internal) : [address] t ? ? UR ? UA-pH 7.0 [pH] 4.6-8.0 Final [place] [pH] [facility] ab (Internal) : [address] t ? ? UR ABNORMAL UA-leuk moderate negative Final No rth Est [facility] L ab (Internal) : [address] t ? ? UR ? UA-nitri negative negative Final Nor th te [facility] L ab (Internal) : [address] t ? ? UR ? UA-prot negative negative Final Nort h [facility] L ab (Internal) : [address] t ? ? UR ? UA-gluc negative negative Final Nort [facility] ab (Internal) : [address] t ? ? UR ? UA-keton negative negative Final Nor th e [facility] L ab (Internal) : [address] t ? ? UR ? UA-urobi normal normal Final [facility] L ab (Internal) : [address] ? ? UR ? UA-bili negative negative Final [facility] L ab (Internal) : [address] ? ? UR ? UA-blood negative negative Final [facility] L ab (Internal) : [address] 04/30/2021 TSH, Serum S ? Tsh 4.54 0.47-4.68 Final [place] or Plasma u[IU]/mL u[IU]/mL [facility] L ab (Internal) : [address] 04/30/2021 Urinalysis UR ABNORMAL UA-WBC 10-25 [hpf] 0-3 [hpf ] Final [facility] Microscop[facility] Hospit al Lab c (Internal) : [address] ? ? UR ? UA-RBC 0-2 [hpf] 0-2 [hpf] Final [facility] L ab (Internal) : [address] ? ? UR ABNORMAL UA-bacte few [hpf] none seen Final [place] luli [hpf] [facility] ab (Internal) : [address] ? ? UR ABNORMAL UA-epith few [hpf] none seen Final [place] elial [hpf] [facility] ab (Internal) : [address] ? ? UR ? UA-mucus none seen none seen Final N orth [hpf] [hpf] [facility] ab (Internal) : [address] 04/30/2021 Respirator FLUID ? Final microbiology ? Fin al [place] y Virus results Country [facility] L ab (Internal) : [address] 04/30/2021 Culture UR ? Final microbiology ? Final [place] ([place] results Country Count), Hospital Lab Urine (Internal) : [address] 02/15/2021 Albumin, S ? Alb 3.9 g/dL 3.5-5.0 Final N orth Serum or g/dL [facility] L ab (Internal) : [address] 02/15/2021 Vitamin D, S ? 25-Fulda <4.0 NG/mL ? Fi nal [place] 25-Hydroxy xy D2 Countr y , Total, Hospital Lab Serum (Internal) : [address] t ? ? S ? 25-Fulda 23 NG/mL ? Final [facility] xy D3 [facility] L ab (Internal) : [address] t ? ? S ? 25-Fulda 23 NG/mL ? Final [place] xy D [facility] L ab (Internal) : [address] 02/05/2021 Cbc BLD ? Wbc 8.0 10*3/uL 5.0-10.0 Final [place] 10*3/uL [facility] L ab (Internal) : [address] t ? ? BLD ? Rbc 4.70 10*6/uL 4.10-5.30 Final N orth 10*6/uL [facility] L ab (Internal) : [address] t ? ? BLD ? Hgb 14.3 g/dL 12.0-16.0 Final Nort h g/dL [facility] L ab (Internal) : [address] ? ? BLD ? Hct 43.4 % 37.0-47.0 Final [facility] Hospital L ab (Internal) : [address] t ? ? BLD ? Mcv 92.3 fL 80.0-96.0 Final [facility] Hospital L ab (Internal) : [address] t ? ? BLD ? Mch 30.4 pg 26.0-32.0 Final [facility] Hospital L ab (Internal) : [address] t ? ? BLD ? Mchc 32.9 g/dL 31.0-35.0 Final Nort h g/dL [facility] (Internal) : [address] t ? ? BLD ? Rdw 13.5 % 11.5-14.5 Final [facility] Hospital L ab (Internal) : [address] ? ? BLD ? Plt 369 10*3/uL 130-450 Final Nort h 10*3/uL [facility] L ab (Internal) : [address] ? ? BLD ? Anc 4.37 10*3/uL ? Final Nort [facility] L [facility] (Internal) : [address] 02/05/2021 BMP, Serum S ? g/r 106 mg/dL 74-106 Final North or Plasma mg/dL [facility] L ab (Internal) : [address] t ? ? S ? Bun 11 mg/dL 7-17 Final [place] mg/dL [facility] L [facility] (Internal) : [address] t ? ? S ? Crea 0.70 mg/dL 0.52-1.04 Final Nor th mg/dL [facility] L ab (Internal) : [address] t ? ? S Low Ca 8.1 mg/dL 8.4-10.2 Final [place] mg/dL [facility] L [facility] (Internal) : [address] t ? ? S ? Na 144 mmol/L 137-145 Final [place] mmol/L [facility] L [facility] (Internal) : [address] t ? ? S ? K 3.8 mmol/L 3.5-5.1 Final [place] mmol/L [facility] L [facility] (Internal) : [address] t ? ? S ? Cl 100 mmol/L 98-107 Final [place] mmol/L [facility] L ab (Internal) : [address] t ? ? S ? Tco2 28.0 mmol/L 22.0-30.0 Final No rth mmol/L [facility] L ab (Internal) : [address] 02/05/2021 TSH, Serum S ? Tsh 1.55 0.47-4.68 Final [place] or Plasma u[IU]/mL u[IU]/mL [facility] Hospital L ab (Internal) : [address] 02/05/2021 Albumin, S ? Alb 4.0 g/dL 3.5-5.0 Final N orth Serum or g/dL [facility] L ab (Internal) : [address] 11/13/2020 Urinalysis UR ? UA-color yellow pale Final [place] , yellow Country Dipstick, Hospita l Lab Reflex (Internal) : Micro [address] ? ? UR ? UA-appea clear clear Final [facility] r [facility] L [facility] (Internal) : [address] ? ? UR ? UA-spec 1.010 1.003-1.0 Final [place] Grav 35 [facility] L ab (Internal) : [address] ? ? UR ? UA-pH 6.0 [pH] 4.6-8.0 Final [place] [pH] [facility] ab (Internal) : [address] [place] ? ? UR ABNORMAL UA-leuk trace negative Final Nort h [facility] ab (Internal) : [address] ? ? UR ? UA-nitri negative negative Final [facility] ab (Internal) : [address] ? ? UR ? [facility]-prot negative negative [facility] [address] ? ? UR ? UA-gluc negative negative [facility] [address] ? ? UR ABNORMAL UA-keton trace negative Final [facility] ab (Internal) : [address] ? ? UR ABNORMAL UA-urobi positive normal Final [facility] ab (Internal) : [address] ? ? UR ? UA-bili negative negative Final [facility] ab (Internal) : [address] ? ? UR ? UA-blood negative negative Final [facility] ab (Internal) : [address] t 11/13/2020 Urinalysis UR ? UA-WBC 0-3 [hpf] 0-3 [hpf] Fi [facility] Microscopi Hospit al Lab c (Internal) : [address] ? ? UR ? UA-RBC 0-2 [hpf] 0-2 [hpf] Final [facility] ab (Internal) : [address] ? ? UR ? UA-bacte rare [hpf] none seen Final [place] luli [hpf] [facility] ab (Internal) : [address] ? ? UR ABNORMAL UA-epith few [hpf] none seen Final [place] elial [hpf] [facility] ab (Internal) : [address] ? ? UR ? UA-mucus none seen none seen Final N orth [hpf] [hpf] [facility] ab (Internal) : [address] t 08/23/2020 Urinalysis UR ? UA-color yellow pale Final [place] , yellow Country Dipstick, Hospita l Lab Reflex (Internal) : Micro [address] ? ? UR ? UA-appea clear clear Final [facility] ab (Internal) : [address] t ? ? UR ? UA-spec 1.020 1.003-1.0 Final [place] Grav 35 [facility] ab (Internal) : [address] ? ? UR ? UA-pH 6.0 [pH] 4.6-8.0 Final [place] [pH] [facility] ab (Internal) : [address] ? ? UR ? UA-leuk negative negative [facility] [address] ? ? UR ? UA-nitri negative negative Final [facility] ab (Internal) : [address] ? ? UR ? [facility]-prot negative negative [facility] [address] ? ? UR ? UA-gluc negative negative Final [facility] (Internal) : [address] ? ? UR ABNORMAL UA-keton trace negative Final [facility] (Internal) : [address] ? ? UR ABNORMAL UA-urobi positive normal Final [facility] ab (Internal) : [address] t ? ? UR ? UA-bili negative negative Final [facility] (Internal) : [address] t ? ? UR ? UA-blood negative negative Final [facility] ab (Internal) : [address] t 08/16/2020 Urinalysis UR ? UA-color dark yellow pale F inal [place] , yellow Country Dipstick, Hospita l Lab Reflex (Internal) : Micro [address] ? ? UR ABNORMAL UA-appea hazy clear Final [facility] ab (Internal) : [address] t ? ? UR ? UA-spec 1.015 1.003-1.0 Final [place] Grav [address] [place] [address] (Internal) : [address] ? ? UR ? UA-pH 6.0 [pH] 4.6-8.0 Final [place] [pH] [facility] ab (Internal) : [address] ? ? UR ABNORMAL UA-leuk small negative Final Nort h [facility] ab (Internal) : [address] ? ? UR ? UA-nitri negative negative Final [facility] ab (Internal) : [address] ? ? UR ? UA-prot negative negative Final [facility] ab (Internal) : [address] ? ? UR ? UA-gluc negative negative Final [facility] ab (Internal) : [address] ? ? UR ABNORMAL UA-keton trace negative Final [facility] ab (Internal) : [address] ? ? UR ABNORMAL UA-urobi positive normal Final [facility] ab (Internal) : [address] ? ? UR ? UA-bili negative negative Final [facility] ab (Internal) : [address] ? ? UR ? UA-blood negative negative Final [facility] ab (Internal) : [address] 08/16/2020 Urinalysis UR ABNORMAL UA-WBC 3-5 [hpf] 0-3 [hpf] [facility] : [address] ? ? UR ? UA-RBC 0-2 [hpf] 0-2 [hpf] Final [facility] ab (Internal) : [address] ? ? UR ABNORMAL UA-bacte few [hpf] none seen Final [place] luli [hpf] [facility] ab (Internal) : [address] ? ? UR ABNORMAL UA-epith few [hpf] none seen Final [place] elial [hpf] [facility] ab (Internal) : [address] ? ? UR ABNORMAL UA-mucus rare [hpf] none seen Final [place] [hpf] [facility] ab (Internal) : [address] 08/16/2020 Culture UR ? Final microbiology ? Final [place] ([place] results Country Count), Hospital Lab Urine (Internal) : [address] 05/03/2020 Urinalysis UR ? UA-color yellow pale Final [place] , yellow [facility] Dipstick, Hospita l Lab Reflex (Internal) : Micro [address] t ? ? UR ? UA-appea clear clear Final [place] r [facility] ab (Internal) : [address] t ? ? UR ? UA-spec 1.020 1.003-1.0 Final [place] Grav 35 [facility] ab (Internal) : [address] t ? ? UR ? UA-pH 6.0 [pH] 4.6-8.0 Final [place] [pH] [facility] ab (Internal) : [address] t ? ? UR ABNORMAL UA-leuk trace negative Final [facility] ab (Internal) : [address] t ? ? UR ? UA-nitri negative negative Final [facility] ab (Internal) : [address] t ? ? UR ? UA-prot negative negative Final [facility] ab (Internal) : [address] t ? ? UR ? UA-gluc negative negative Final [facility] ab (Internal) : [address] t ? ? UR ABNORMAL UA-keton trace negative Final [facility] ab (Internal) : [address] t ? ? UR ABNORMAL UA-urobi positive normal Final [facility] ab (Internal) : [address] t ? ? UR ? UA-bili negative negative Final [facility] ab (Internal) : [address] t ? ? UR ? UA-blood negative negative Final [facility] ab (Internal) : [address] 05/03/2020 Urinalysis UR ABNORMAL UA-WBC 10-25 [hpf] 0-3 [hpf ] Final [place] , Country Microscopi Hospit al Lab c (Internal) : [address] t ? ? UR ? UA-RBC 0-2 [hpf] 0-2 [hpf] Final [facility] ab (Internal) : [address] t ? ? UR ABNORMAL UA-bacte few [hpf] none seen Final [place] luli [hpf] [facility] L ab (Internal) : [address] t ? ? UR ABNORMAL UA-epith moderate none seen Final [place] elial [hpf] [hpf] [facility] L ab (Internal) : [address] t ? ? UR ABNORMAL UA-mucus few [hpf] none seen Final [place] [hpf] [facility] L ab (Internal) : [address] 05/03/2020 Culture UR ? Final microbiology ? Final [place] ([place] results Country Count), [place] Lab Urine (Internal) : [address] 04/09/2020 Pathology TISS ? Report (see below) ? Jeny muro [facility] ab (Internal) : [address] 02/21/2020 Lipid S ? Chol 177 mg/dL 50-200 Final [facility] Panel, mg/dL [facility] L ab (Internal) : [address] t ? ? S High Trig 175 mg/dL 10-150 Final [place] mg/dL [facility] L ab (Internal) : [address] t ? ? S ? Hdl 46 mg/dL 40-60 Final [place] mg/dL [facility] L ab (Internal) : [address] t ? ? S ? Ldl 96 mg/dL 0-130 Final [place] mg/dL [facility] L ab (Internal) : [address] 02/21/2020 TSH, Serum S ? Tsh 2.28 0.47-4.68 Final [place] or Plasma u[IU]/mL u[IU]/mL [facility] L ab (Internal) : [address] 07/21/2019 CBC W/ BLD - Wbc 9.0 10*3/uL 5.0-10.0 Final [place] Auto Diff 10*3/uL [facility] L ab (Internal) : [address] ? ? BLD - Rbc 4.20 10*6/uL 4.10-5.30 Final N orth 10*6/uL [facility] L ab (Internal) : [address], [place] ? ? BLD - Hgb 13.0 g/dL 12.0-16.0 Final Nort h g/dL [facility] L ab (Internal) : [address] ? ? BLD - Hct 40.6 % 37.0-47.0 Final [facility] Hospital L ab (Internal) : [address] ? ? BLD High Mcv 96.7 fL 80.0-96.0 Final [facility] Hospital L ab (Internal) : [address] ? ? BLD - Mch 31.0 pg 26.0-32.0 Final [place] pg [facility] L ab (Internal) : [address] ? ? BLD - Mchc 32.0 g/dL 31.0-35.0 Final Nort h g/dL [facility] L ab (Internal) : [address] ? ? BLD - Rdw 12.8 % 11.5-14.5 Final [facility] Hospital L ab (Internal) : [address] ? ? BLD - Plt 325 10*3/uL 130-450 Final Nort h 10*3/uL [facility] L ab (Internal) : [address] ? ? BLD - Anc 4.36 10*3/uL ? Final Nort [facility] L ab (Internal) : [address] ? ? BLD - Neutro 48.5 % 40.0-75.0 Final [facility] Hospital L ab (Internal) : [address] ? ? BLD - Lymph 38.4 % 20.0-50.0 Final [facility] Hospital L ab (Internal) : [address] ? ? BLD - Hardeman 7.7 % 2.0-10.0 Final [facility] Hospital L ab (Internal) : [address] ? ? BLD - Eos 4.6 % 1.0-6.0 % Final [facility] Hospital L ab (Internal) : [address] ? ? BLD - Baso 0.6 % 0.0-1.0 % Final [facility] Hospital L ab (Internal) : [address] ? ? BLD - Ig 0.2 % 0.0-0.9 % Final [facility] L ab (Internal) : [address] 07/21/2019 CRP, High S - Rcrp <0.10 mg/dL 0.10-0.30 [facility] Sensitivit mg/dL Countr y y, Serum Hospital Lab or Plasma (Insole Rounder al): [address] 07/21/2019 Urinalysis UR - UA-color yellow pale Final [place] , yellow [facility] Dipstick, Hospita l Lab Reflex (Internal) : Micro [address] ? ? UR - UA-appea clear clear Final [facility] L ab (Internal) : [address] ? ? UR - UA-spec 1.010 1.003-1.0 Final [place] Grav 35 [facility] L ab (Internal) : [address] ? ? UR - UA-pH 6.5 [pH] 4.6-8.0 Final [place] [pH] [facility] L ab (Internal) : [address] ? ? UR - UA-leuk negative negative Final Nort h [facility] L ab (Internal) : [address] ? ? UR - UA-nitri negative negative Final Nor te [facility] L ab (Internal) : [address] ? ? UR - UA-prot negative negative Final Nort [facility] L ab (Internal) : [address] ? ? UR - UA-gluc negative negative Final Nort h [facility] L ab (Internal) : [address] ? ? UR - UA-keton negative negative Final Nor th e [facility] L ab (Internal) : [address] ? ? UR ABNORMAL UA-urobi positive normal Final Nor th l [facility] L ab (Internal) : [address] ? ? UR - UA-bili negative negative Final Nort h [facility] L ab (Internal) : [address] ? ? UR - UA-blood negative negative Final Nor [facility] Hospital L ab (Internal) : [address] 05/19/2019 CBC W/ BLD - Wbc 8.0 10*3/uL 5.0-10.0 Final [place] Auto Diff 10*3/uL [facility] Hospital L ab (Internal) : [address] ? ? BLD - Rbc 4.51 10*6/uL 4.10-5.30 Final N orth 10*6/uL [facility] L ab (Internal) : [address] ? ? BLD - Hgb 14.2 g/dL 12.0-16.0 Final Nort h g/dL [facility] L ab (Internal) : [address] ? ? BLD - Hct 44.0 % 37.0-47.0 Final [facility] L ab (Internal) : [address] ? ? BLD High Mcv 97.6 fL 80.0-96.0 Final [facility] L ab (Internal) : [address] ? ? BLD - Mch 31.5 pg 26.0-32.0 Final [facility] L ab (Internal) : [address] ? ? BLD - Mchc 32.3 g/dL 31.0-35.0 Final Nort h g/dL [facility] L ab (Internal) : [address] ? ? BLD - Rdw 12.2 % 11.5-14.5 Final [facility] L ab (Internal) : [address] ? ? BLD - Plt 315 10*3/uL 130-450 Final Nort h 10*3/uL [facility] L ab (Internal) : [address] ? ? BLD - Anc 3.77 10*3/uL ? Final Nort h [facility] L ab (Internal) : [address] ? ? BLD - Neutro 47.0 % 40.0-75.0 Final [facility] L ab (Internal) : [address] ? ? BLD - Lymph 40.9 % 20.0-50.0 Final [facility] L ab (Internal) : [address] ? ? BLD - Hardeman 6.6 % 2.0-10.0 Final [facility] L ab (Internal) : [address] ? ? BLD - Eos 4.4 % 1.0-6.0 % Final [facility] Hospital L ab (Internal) : [address] ? ? BLD - Baso 0.7 % 0.0-1.0 % Final [facility] Hospital L ab (Internal) : [address] ? ? BLD - Ig 0.4 % 0.0-0.9 % Final [facility] Hospital L ab (Internal) : [address] t 05/19/2019 Creatinine S - Crea 0.80 mg/dL 0.52-1.04 Fi nal [place] , Serum or mg/dL Countr y Plasma Hospital L ab (Internal) : [address] 05/19/2019 Magnesium, S - mg 2.0 mg/dL 1.6-2.3 Final [place] QN, Serum mg/dL Country or [facility] Lab (Internal) : [address] 02/15/2019 BMP, Serum S High g/r 115 mg/dL 74-106 Final [place] or Plasma mg/dL [facility] L ab (Internal) : [address] ? ? S - Bun 15 mg/dL 7-17 Final [place] mg/dL [facility] L ab (Internal) : [address] ? ? S - Crea 0.70 mg/dL 0.52-1.04 Final Nor th mg/dL [facility] L ab (Internal) : [address] ? ? S - Ca 8.9 mg/dL 8.4-10.2 Final [place] mg/dL [facility] L ab (Internal) : [address] t ? ? S - Na 141 mmol/L 137-145 Final [place] mmol/L [facility] L ab (Internal) : [address] ? ? S - K 3.8 mmol/L 3.5-5.1 Final [place] mmol/L [facility] L ab (Internal) : [address] t ? ? S - Cl 107 mmol/L 98-107 Final [place] mmol/L [facility] L ab (Internal) : [address] t ? ? S - Tco2 28.0 mmol/L 22.0-30.0 Final No rth mmol/L [facility] L ab (Internal) : [address] 02/15/2019 Lipid S - Chol 186 mg/dL 50-200 Final [facility] Panel, mg/dL [facility] Hospital L ab (Internal) : [address] ? ? S High Trig 202 mg/dL 10-150 Final [place] mg/dL [facility] L ab (Internal) : [address] ? ? S - Hdl 49 mg/dL 40-60 Final [place] mg/dL [facility] L ab (Internal) : [address] ? ? S - Ldl 97 mg/dL 0-130 Final [place] mg/dL [facility] L ab (Internal) : [address] 02/15/2019 Magnesium, S Low mg 1.4 mg/dL 1.6-2.3 Final [place] QN, Serum mg/dL Country or Plasma Hospita l Lab (Internal) : [address] 02/15/2019 TSH, Serum S - Tsh 0.87 0.47-4.68 Final [place] or Plasma u[IU]/mL u[IU]/mL [facility] L ab (Internal) : [address] 10/22/2018 Urinalysis UR - UA-color yellow pale Final [place] , yellow [facility] Dipstick, Hospita l Lab Reflex (Internal) : Micro [address] ? ? UR - UA-appea clear clear Final [place] r [facility] L ab (Internal) : [address] ? ? UR - UA-spec 1.015 1.003-1.0 Final [place] Grav 35 [facility] L ab (Internal) : [address] ? ? UR - UA-pH 6.5 [pH] 4.6-8.0 Final [place] [pH] [facility] L ab (Internal) : [address] ? ? UR ABNORMAL UA-leuk small negative Final Nort h [facility] L ab (Internal) : [address] ? ? UR - UA-nitri negative negative Final [facility] th [facility] L ab (Internal) : [address] ? ? UR - UA-prot negative negative Final Nort h [facility] ab (Internal) : [address] ? ? UR - UA-gluc negative negative Final Nort h [facility] ab (Internal) : [address] ? ? UR - UA-keton negative negative Final Nor e [facility] ab (Internal) : [address] ? ? UR ABNORMAL UA-urobi positive normal Final Nor l [facility] ab (Internal) : [address] ? ? UR - UA-bili negative negative Final Nort h [facility] ab (Internal) : [address] ? ? UR - UA-blood negative negative Final [facility] ab (Internal) : [address] t 10/22/2018 Urinalysis UR - UA-WBC 0-3 [hpf] 0-3 [hpf] Fi [facility] , [facility] Micro[facility] Hospit [facility] Lab c (Internal) : [address] ? ? UR - UA-RBC 0-2 [hpf] 0-2 [hpf] Final [facility] ab (Internal) : [address] ? ? UR ABNORMAL UA-bacte few [hpf] none seen Final [place] luli [hpf] [facility] ab (Internal) : [address] ? ? UR ABNORMAL UA-epith few [hpf] none seen Final [place] elial [hpf] [facility] ab (Internal) : [address] ? ? UR - UA-mucus none seen none seen Final N orth [hpf] [hpf] [facility] ab (Internal) : [address] t 10/22/2018 Culture UR - Final microbiology ? Final [place] ([place] results Country [facility] [place] [facility] Lab Urine (Internal) : [address] 08/19/2018 Pathology TISS - Report results ? Final N orth Study below [facility] ab (Internal) : [address] 03/12/2018 CBC W/ BLD - Wbc 8.8 10*3/uL 5.0-10.0 Final [place] Auto Diff 10*3/uL [facility] (Internal) : [address] ? ? BLD - Rbc 4.37 10*6/uL 4.10-5.30 Final N orth 10*6/uL [facility] (Internal) : [address] ? ? BLD - Hgb 13.7 g/dL 12.0-16.0 Final Nort h g/dL [facility] (Internal) : [address] ? ? BLD - Hct 42.3 % 37.0-47.0 Final [facility] L ab (Internal) : [address] ? ? BLD High Mcv 96.8 fL 80.0-96.0 Final [facility] L ab (Internal) : [address] ? ? BLD - Mch 31.4 pg 26.0-32.0 Final [facility] L ab (Internal) : [address] ? ? BLD - Mchc 32.4 g/dL 31.0-35.0 Final Nort h g/dL [facility] (Internal) : [address] ? ? BLD - Rdw 12.9 % 11.5-14.5 Final [facility] Hospital L ab (Internal) : [address] ? ? BLD - Plt 338 10*3/uL 130-450 Final Nort h 10*3/uL [facility] (Internal) : [address] ? ? BLD - Anc 4.37 10*3/uL ? Final Nort h [facility] (Internal) : [address] t ? ? BLD - Neutro 49.8 % 40.0-75.0 Final [facility] Hospital L ab (Internal) : [address] ? ? BLD - Lymph 37.2 % 20.0-50.0 Final [facility] L ab (Internal) : [address] ? ? BLD - Hardeman 7.8 % 2.0-10.0 Final [facility] L ab (Internal) : [address] ? ? BLD - Eos 4.8 % 1.0-6.0 % Final [facility] ab (Internal) : [address] t ? ? BLD - Baso 0.3 % 0.0-1.0 % Final [facility] ab (Internal) : [address] t ? ? BLD - Ig 0.1 % 0.0-0.9 % Final [facility] ab (Internal) : [address] 03/12/2018 Urinalysis UR - UA-color yellow pale Final [facility] Dipstick, Hospita l Lab Reflex (Internal) : Micro [address] t ? ? UR - UA-appea clear clear Final [facility] ab (Internal) : [address] t ? ? UR - UA-spec 1.020 1.003-1.[address] ab (Internal) : [address] t ? ? UR - UA-pH 5.5 [pH] 4.6-8.0 Final [place] [pH] [facility] ab (Internal) : [address] t ? ? UR ABNORMAL UA-leuk trace negative Final [facility] L ab (Internal) : [address] t ? ? UR - UA-nitri negative negative Final [facility] L ab (Internal) : [address] ? ? UR - UA-prot negative negative Final [facility] ab (Internal) : [address] t ? ? UR - UA-gluc negative negative Final Nort [facility] ab (Internal) : [address] t ? ? UR - UA-keton negative negative Final Nor e [facility] L ab (Internal) : [address] t ? ? UR - UA-urobi normal normal Final [facility] (Internal) : [address] t ? ? UR - UA-bili negative negative Final Nort [facility] ab (Internal) : [address] t ? ? UR - UA-blood negative negative Final [facility] ab (Internal) : [address] 03/12/2018 Lipid S - Chol 186 mg/dL 50-200 Final Nor th Panel, mg/dL [facility] (Internal[facility] : [address] t ? ? S High Trig 179 mg/dL 10-150 Final [facility] mg/dL [facility] (Internal) : [address] ? ? S - Hdl 47 mg/dL 40-60 Final [facility] mg/dL [facility] (Internal) : [address] t ? ? S - Ldl 103 mg/dL 0-130 Final [facility] mg/dL [facility] (Internal) : [address] 03/12/2018 BMP, Serum S - g/r 91 mg/dL 74-106 Final [facility] or Plasma mg/dL [facility] (Internal) : [address] ? ? S - Bun 15 mg/dL 7-17 Final [facility] mg/dL [facility] (Internal) : [address] ? ? S - Crea 0.80 mg/dL 0.52-1.04 Final Nor th mg/dL [facility] (Internal) : [address] ? ? S - Ca 9.3 mg/dL 8.4-10.2 Final [facility] mg/dL [facility] (Internal) : [address] ? ? S - Na 141 mmol/L 137-145 Final [facility] mmol/L [facility] (Internal) : [address] ? ? S - K 3.5 mmol/L 3.5-5.1 Final [facility] mmol/L [facility] (Internal) : [address] ? ? S - Cl 101 mmol/L 98-107 Final [facility] mmol/L [facility] (Internal) : [address] ? ? S - Tco2 30.0 mmol/L 22.0-30.0 Final No rth mmol/L [facility] (Internal) : [address] 03/12/2018 CRP, High S - Rcrp 0.14 mg/dL 0.10-0.30 Fin al [facility] mg/dL Countr y y, Serum Hospital Lab or Plasma (Insole Rounder al): [address] 03/12/2018 Urinalysis UR - UA-WBC 0-3 [hpf] 0-3 [hpf] Fi nal [place] [facility] c (Internal) : [address] ? ? UR - UA-RBC 0-2 [hpf] 0-2 [hpf] Final Nor th [facility] (Internal) : [address] ? ? UR - UA-bacte rare [hpf] none seen Final [place] luli [hpf] [facility] (Internal) : [address] ? ? UR ABNORMAL UA-epith few [hpf] none seen Final [place] elial [hpf] [facility] (Internal) : [address] t ? ? UR ABNORMAL UA-mucus rare [hpf] none seen Final [place] [hpf] [facility] L ab (Internal) : [address] 01/25/2018 Urinalysis UR ? UA-color yellow pale Final [place] , Complete yellow [facility] L ab (Internal) : [address] t ? ? UR ? UA-appea clear clear Final [place] [facility] ab (Internal) : [address] t ? ? UR ? UA-spec 1.020 1.003-1.0 Final [place] Grav 35 [facility] L ab (Internal) : [address] t ? ? UR ? UA-pH 5.5 [pH] 4.6-8.0 Final [place] [pH] [facility] L ab (Internal) : [address] ? ? UR ABNORMAL UA-leuk small negative Final Nort h [facility] (Internal) : [address] t ? ? UR ? UA-nitri negative negative Final Nor th te [facility] (Internal) : [address] t ? ? UR ? UA-prot negative negative Final Nort h [facility] L ab (Internal) : [address] t ? ? UR ? UA-gluc negative negative Final Nort h [facility] L ab (Internal) : [address] t ? ? UR ? UA-keton negative negative Final Nor th e [facility] L ab (Internal) : [address] ? ? UR ABNORMAL UA-urobi positive normal Final Nor [facility] ab (Internal) : [address] ? ? UR ? UA-bili negative negative Final Nort h [facility] ab (Internal) : [address] ? ? UR ? UA-blood negative negative Final [facility] ab (Internal) : [address] ? ? UR ABNORMAL UA-WBC 3-5 [hpf] 0-3 [hpf] Final N orth [facility] ab (Internal) : [address] ? ? UR ? UA-RBC 0-2 [hpf] 0-2 [hpf] Final [facility] ab (Internal) : [address] ? ? UR ? UA-bacte rare [hpf] none seen Final North luli [hpf] [facility] ab (Internal) : [address] ? ? UR ABNORMAL UA-epith many [hpf] none seen Final [place] elial [hpf] [facility] ab (Internal) : [address] ? ? UR ABNORMAL UA-mucus moderate none seen Final [place] [hpf] [hpf] [facility] (Internal) : [address] 01/08/2018 Culture, UR ? Final microbiology ? Final [place] Urine results [facility] (Internal) : [address] 01/08/2018 Urinalysis UR ABNORMAL UA-WBC 10-25 [hpf] 0-3 [hpf ] Final [facility] Lab c (Internal) : [address] ? ? UR ABNORMAL UA-RBC 25-50 [hpf] 0-2 [hpf] Final [facility] ab (Internal) : [address] ? ? UR ? UA-bacte none seen none seen Final N orth luli [hpf] [hpf] [facility] ab (Internal) : [address] ? ? UR ABNORMAL UA-epith few [hpf] none seen Final [place] elial [hpf] [facility] ab (Internal) : [address] ? ? UR ? UA-mucus none seen none seen Final N orth [hpf] [hpf] [facility] ab (Internal) : [address] 01/08/2018 Urinalysis UR ? UA-color dark yellow pale F inal [facility] , yellow [facility] Dipstick, Hospita l Lab Reflex (Internal) : Micro [address] ? ? UR ? UA-appea clear clear Final [place] [facility] ab (Internal) : [address] ? ? UR ? UA-gluc negative negative Final Nort [facility] ab (Internal) : [address] ? ? UR ? UA-bili negative negative Final [facility] ab (Internal) : [address] ? ? UR ? UA-keton negative negative Final [facility] ab (Internal) : [address] ? ? UR ? UA-spec 1.020 1.003-1.0 Final [place] Grav 35 [facility] ab (Internal) : [address] ? ? UR ABNORMAL UA-blood large negative Final [facility] ab (Internal) : [address] ? ? UR ? UA-pH 5.5 [pH] 4.6-8.0 Final [place] [pH] [facility] ab (Internal) : [address] ? ? UR ? UA-prot negative negative Final [facility] ab (Internal) : [address] ? ? UR ? UA-urobi normal normal Final [facility] ([facility]) : [address] ? ? UR ? UA-nitri negative negative Final [facility] ab (Internal) : [address] ? ? UR ABNORMAL UA-leuk small negative Final Nort h [facility] ab (Internal) : [address] 12/29/2017 Venipunctu BLD ? Venpn* ? ? Final N orth re [facility] ab (Internal) : [address] 12/29/2017 TSH, Serum S ? Tsh 0.66 0.47-4.68 Final [place] or Plasma u[IU]/mL u[IU]/mL [facility] ab (Internal) : [address] 11/20/2017 Pathology TISS ? Report results ? Final N orth Study below [facility] (Internal[facility] : [address] 10/13/2017 Venipunctu BLD ? Venpn* ? ? Final N orth re [facility] L ab (Internal) : [address] 10/13/2017 TIFFANY S ? TIFFANY negative negat Final Nort h ([facility]inucle [facility] ([facility] nal): ) Screen, [address] t 04/06/2017 Venipunctu BLD ? Venpn* ? ? Final N orth re [facility] ab (Internal) : [address] 04/06/2017 Lipid S ? Chol 176 mg/dL 50-200 Final Nor th Panel, mg/dL [facility] L ab (Internal) : [address] ? ? S High Trig 260 mg/dL 10-150 Final [place] mg/dL [facility] L ab (Internal) : [address] ? ? S ? Hdl 46 mg/dL 40-60 Final [facility] mg/dL [facility] (Internal) : [address] ? ? S ? Ldl 78 mg/dL 0-130 Final [facility] mg/dL [facility] L ab (Internal) : [address] 04/06/2017 BMP, Serum S ? g/r 98 mg/dL 74-106 Final [facility] or Plasma mg/dL [facility] (Internal) : [address] ? ? S High Bun 19 mg/dL 7-17 Final [facility] mg/dL [facility] (Internal) : [address] ? ? S ? Crea 0.90 mg/dL 0.52-1.04 Final Nor th mg/dL [facility] (Internal) : [address] ? ? S ? Ca 9.8 mg/dL 8.4-10.2 Final [facility] mg/dL [facility] (Internal) : [address] t ? ? S ? Na 144 mmol/L 137-145 Final [place] mmol/L [facility] L ab (Internal) : [address] ? ? S ? K 4.4 mmol/L 3.5-5.1 Final [place] mmol/L [facility] (Internal) : [address] ? ? S ? Cl 106 mmol/L 98-107 Final [place] mmol/L [facility] (Internal) : [address] ? ? S ? Tco2 30.0 mmol/L 22.0-30.0 Final No rth mmol/L [facility] (Internal) : [address] t 04/06/2017 CBC W/ BLD High Wbc 10.4 10*3/uL 5.0-10.0 Final [place] Auto Diff 10*3/uL [facility] Hospital L ab (Internal) : [address] ? ? BLD ? Rbc 4.41 10*6/uL 4.10-5.30 Final N orth 10*6/uL [facility] (Internal) : [address] ? ? BLD ? Hgb 14.0 g/dL 12.0-16.0 Final Nort h g/dL [facility] (Internal) : [address] ? ? BLD ? Hct 42.3 % 37.0-47.0 Final [facility] L ab (Internal) : [address] ? ? BLD ? Mcv 95.9 fL 80.0-96.0 Final [facility] L ab (Internal) : [address] ? ? BLD ? Mch 31.7 pg 26.0-32.0 Final [place] pg [facility] (Internal) : [address] ? ? BLD ? Mchc 33.1 g/dL 31.0-35.0 Final Nort h g/dL [facility] (Internal) : [address] ? ? BLD ? Rdw 12.9 % 11.5-14.5 Final [facility] L ab (Internal) : [address] ? ? BLD ? Plt 301 10*3/uL 130-450 Final Nort h 10*3/uL [facility] (Internal) : [address] ? ? BLD ? Anc 5.67 10*3/uL ? Final Nort h [facility] ab (Internal) : [address] ? ? BLD ? Neutro 54.7 % 40.0-75.0 Final [facility] L ab (Internal) : [address] ? ? BLD ? Lymph 33.9 % 20.0-50.0 Final [facility] L ab (Internal) : [address] ? ? BLD ? Hardeman 7.1 % 2.0-10.0 Final [facility] L ab (Internal) : [address] ? ? BLD ? Eos 3.5 % 1.0-6.0 % Final [facility] L ab (Internal) : [address] ? ? BLD ? Baso 0.6 % 0.0-1.0 % Final [facility] L ab (Internal) : [address] ? ? BLD ? Ig 0.2 % 0.0-0.9 % Final [facility] L ab (Internal) : [address] 04/06/2017 CRP, High S ? Rcrp <0.10 mg/dL 0.10-0.30 Fi nal [place] [facility] mg/dL Countr y y, Serum Hospital Lab or Plasma (Insole Rounder al): [address] Past Encounters 06/06/2021 Small Cell Carcinoma of Lung; Headache; Anxiety; Palpitations; Dysphagia; Hyponatremia Thaddeus Willis, DO: [address] [place] [address], Ph. 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 02/05/2021 Anxiety; Irritable Bowel Syndrome with D iarrhea; Atherosclerosis of Coronary Artery without Angina Pectoris; Hypertensive Disorder; Hypothyroidism Thaddeus Willis, DO: [address] [place] [address], Ph. 08/23/2020 Dysuria Thaddeus Willis, DO: [address] [place] [address], Ph. 08/16/2020 Adult Health Examination; Atherosclerosi s of Coronary Artery without Angina Pectoris; Aortic Valve Sclerosis; Supraventricular Tachycardia; Hypertensive Disorder; Hyperlipidemia; Dysphagia; Hypothyroidism; Dysuria Thaddeus Willis, DO: [address] [place] [address], Ph. 05/03/2020 Dysphagia; Dysuria; Esophagitis; Hyperte nsive Disorder Thaddeus Willis, DO: [address] [place] [address], Ph. 04/20/2020 Gastro-esophageal Reflux Disease with Es ophagitis Mary Rose MD: [address] [place] [address], Ph. 02/02/2020 Hypothyroidism; Hyperlipidemia; Hyperten sive Disorder; Gastroesophageal Reflux Disease; Acute Urinary Tract Infection Thaddeus Willis, DO: [address] [place] [address], Ph. Social History Tobacco Smoking Status Former Smoker Notes: Quit in 1994, smoked 1ppd x25 years Vaccine List Vaccine Type COVID-19, mRNA, LNP-S, [...] Td (adult), adsorbed 02/24/2000 Tdap 05/26/2012?0.5 mL Plan of Care Reminders Provider Appointments None ? ? recorded. Lab None ? ? recorded. Referral None ? ? recorded. Procedures None ? ? recorded. Surgeries None ? ? recorded. Imaging None ? ? recorded. Vitals 06/06/2021 03:20PM Telehealth 20 Height 154.94 cm 04/30/2021 11:20AM Acute 20 Height Weight BMI Blood Pressure 154.94 cm 61.23 kg 25.5 kg/m2 140/70 mm[Hg] 02/05/2021 10:00AM Follow Up 20 Height Weight BMI Blood Pressure 154.94 cm 62.6 kg 26.1 kg/m2 120/60 mm[Hg] 08/23/2020 11:20AM Acute 20 Height Weight Blood Pressure 154.94 cm 130/58 mm[Hg] 08/16/2020 10:40AM AWV 40 Height Weight BMI Blood Pressure 154.94 cm 63.96 kg 26.6 kg/m2 140/60 mm[Hg] 05/03/2020 02:40PM Follow Up 20 Height Weight BMI Blood Pressure 154.31 cm 63.25 kg 26.6 kg/m2 152/62 mm[Hg] 02/02/2020 02:20PM Follow Up 20 Height 154.31 cm 12/19/2019 09:15AM Office 15 Height Blood Pressure 154.31 cm 144/74 mm[Hg] 11/01/2019 02:40PM Follow Up 20 Height Weight BMI Blood Pressure 154.31 cm 65.77 kg 27.6 kg/m2 142/78 mm[Hg] 07/21/2019 02:40PM Follow Up 20 Height Weight BMI Blood Pressure 154.31 cm 65.77 kg 27.6 kg/m2 100/68 mm[Hg] 05/19/2019 01:40PM Any 20 Height Weight BMI Blood Pressure 154.31 cm 64.86 kg 27.2 kg/m2 114/56 mm[Hg] 02/15/2019 02:00PM AWV 40 Height Weight BMI Blood Pressure 154.31 cm 64.41 kg 27 kg/m2 120/80 mm[Hg] 12/28/2018 02:40PM Acute 20 Height Weight BMI Blood Pressure 152.4 cm 63.96 kg 27.5 kg/m2 140/58 mm[Hg] 11/09/2018 12:40PM Any 20 Height Blood Pressure 152.4 cm 140/60 mm[Hg] 09/07/2018 12:40PM Follow Up 20 Height Blood Pressure 152.4 cm 118/64 mm[Hg] 07/02/2018 12:40PM Follow Up 20 Height Blood Pressure 152.4 cm 120/64 mm[Hg] 03/12/2018 02:00PM Follow Up 20 Height Weight BMI Blood Pressure 152.4 cm 67.31 kg 29 kg/m2 112/58 mm[Hg] 01/08/2018 Weight Blood Pressure 66.5 kg 128/60 mm[Hg] 12/07/2017 Weight Blood Pressure 67.99 kg 110/55 mm[Hg] 11/20/2017 Weight Blood Pressure 67.45 kg 114/58 mm[Hg] 11/13/2017 Weight Blood Pressure 68.04 kg 120/50 mm[Hg] 10/12/2017 Height Weight Blood Pressure 152.4 cm 67.99 kg 110/61 mm[Hg] 09/24/2017 Blood Pressure 142/70 mm[Hg] 09/11/2017 Height Weight Blood Pressure 152.4 cm 68.76 kg 112/52 mm[Hg] 08/28/2017 Weight Blood Pressure 68.63 kg 128/58 mm[Hg] 07/07/2017 Height Weight Blood Pressure 152.4 cm 68.22 kg 122/50 mm[Hg] 04/06/2017 Height Weight Blood Pressure 152.4 cm 67.77 kg 116/60 mm[Hg] 01/01/2017 Height Weight Blood Pressure 152.4 cm 67.95 kg 106/48 mm[Hg] 11/28/2016 Weight Blood Pressure 68.81 kg 118/54 mm[Hg] 08/28/2016 Weight Blood Pressure 70.76 kg 118/52 mm[Hg] 06/24/2016 Weight Blood Pressure 69.94 kg 124/56 mm[Hg] 05/06/2016 Height Weight Blood Pressure 152.4 cm 70.99 kg 112/60 mm[Hg] 02/11/2016 Weight Blood Pressure 71.94 kg 130/50 mm[Hg] 11/19/2015 Height Weight Blood Pressure 152.4 cm 71.62 kg 110/54 mm[Hg] 09/14/2015 Height Weight Blood Pressure 152.4 cm 71.58 kg 136/58 mm[Hg] 06/25/2015 Weight Blood Pressure 71.4 kg 110/58 mm[Hg] 05/22/2015 Height Weight Blood Pressure 152.4 cm 70.87 kg 120/54 mm[Hg] 01/11/2015 Height Weight Blood Pressure 153.67 cm 70.31 kg 120/72 mm[Hg] 12/14/2014 Height Weight Blood Pressure 152.4 cm 71.1 kg (1) 110/50 mm[Hg] (2) 124/64 mm[Hg] 08/29/2014 Weight Blood Pressure 69.58 kg (1) 124/56 mm[Hg] (2) 126/56 mm[Hg] 04/11/2014 Weight Blood Pressure 71.49 kg 104/50 mm[Hg] 01/02/2014 Height Weight Blood Pressure 152.4 cm 72.8 kg (1) 124/62 mm[Hg] (2) 138/62 mm[Hg] 09/13/2013 Height Weight Blood Pressure 152.4 cm 74.16 kg 124/54 mm[Hg] 09/05/2013 Height Weight Blood Pressure 152.4 cm 74.05 kg (1) 118/72 mm[Hg] (2) 114/60 mm[Hg] 07/25/2013 Weight Blood Pressure 74.34 kg 142/56 mm[Hg] 03/10/2013 Height Weight Blood Pressure 152.4 cm 75.3 kg (1) 118/62 mm[Hg] (2) 124/50 mm[Hg] 11/30/2012 Height Weight Blood Pressure 152.4 cm 73.82 kg (1) 118/66 mm[Hg] (2) 124/58 mm[Hg] 10/20/2012 Height Weight Blood Pressure 153.04 cm 74.39 kg (1) 118/58 mm[Hg] (2) 140/68 mm[Hg] 07/01/2012 Weight 73.48 kg 05/24/2012 Weight Blood Pressure 73.48 kg (1) 116/66 mm[Hg] (2) 116/62 mm[Hg] 04/02/2012 Weight Blood Pressure 73.75 kg 148/68 mm[Hg] 03/19/2012 Height Weight Blood Pressure 153.04 cm 73.62 kg (1) 116/58 mm[Hg] (2) 130/68 mm[Hg] 02/09/2012 Height Weight Blood Pressure 153.04 cm 75.07 kg 112/58 mm[Hg] 01/12/2012 Height Weight Blood Pressure 153.04 cm 75.07 kg (1) 104/52 mm[Hg] (2) 114/64 mm[Hg] 08/21/2011 Height Weight 153.67 cm 74.39 kg 08/12/2011 Height Weight Blood Pressure 153.67 cm 74.62 kg (1) 124/76 mm[Hg] (2) 124/56 mm[Hg] 06/11/2011 Weight Blood Pressure 73.48 kg 110/60 mm[Hg] 03/11/2011 Height Weight Blood Pressure 153.67 cm 74.39 kg (1) 114/56 mm[Hg] (2) 124/70 mm[Hg] 11/04/2010 Height Weight Blood Pressure 153.67 cm 75.18 kg (1) 116/58 mm[Hg] (2) 122/76 mm[Hg] 09/25/2010 Height Weight Blood Pressure 153.67 cm 75.75 kg 140/70 mm[Hg] 07/09/2010 Weight Blood Pressure 75.38 kg (1) 120/62 mm[Hg] (2) 128/60 mm[Hg] 05/10/2010 Weight Blood Pressure 75.07 kg 110/60 mm[Hg] 05/03/2010 Weight Blood Pressure 75.95 kg 120/68 mm[Hg] 12/31/2009 Weight Blood Pressure 76.66 kg (1) 108/70 mm[Hg] (2) 114/60 mm[Hg] 10/12/2009 Weight Blood Pressure 76.66 kg (1) 132/60 mm[Hg] (2) 128/66 mm[Hg] 08/23/2009 Weight Blood Pressure 76.66 kg (1) 132/74 mm[Hg] (2) 120/60 mm[Hg] 05/24/2009 Height Weight Blood Pressure 154.94 cm 77.56 kg (1) 124/58 mm[Hg] (2) 126/70 mm[Hg] 01/15/2009 Weight Blood Pressure 76.2 kg 126/60 mm[Hg] 11/17/2008 Weight Blood Pressure 75.3 kg (1) 140/66 mm[Hg] (2) 136/58 mm[Hg] 06/22/2008 Weight Blood Pressure 72.57 kg (1) 116/62 mm[Hg] (2) 124/66 mm[Hg] 01/27/2008 Weight Blood Pressure 73.03 kg (1) 130/68 mm[Hg] (2) 122/68 mm[Hg] 10/14/2007 Weight Blood Pressure 72.12 kg (1) 120/60 mm[Hg] (2) 110/50 mm[Hg] 09/13/2007 Weight Blood Pressure 73.03 kg 110/62 mm[Hg] 07/19/2007 Weight Blood Pressure 72.57 kg (1) 104/50 mm[Hg] (2) 110/58 mm[Hg] 07/01/2007 Weight Blood Pressure 74.39 kg (1) 110/60 mm[Hg] (2) 108/50 mm[Hg] 05/22/2007 Weight Blood Pressure 72.57 kg 122/60 mm[Hg] 02/02/2007 Weight Blood Pressure 71.21 kg (1) 106/58 mm[Hg] (2) 116/58 mm[Hg] 11/03/2006 Weight Blood Pressure 70.31 kg (1) 114/70 mm[Hg] (2) 106/60 mm[Hg] 09/15/2006 Weight Blood Pressure 69.46 kg (1) 118/68 mm[Hg] (2) 110/52 mm[Hg] 07/28/2006 Height Weight Blood Pressure 152.4 cm 68.49 kg 132/66 mm[Hg] 07/02/2006 Weight Blood Pressure 69.63 kg (1) 124/62 mm[Hg] (2) 138/68 mm[Hg] 01/30/2006 Weight Blood Pressure 68.04 kg 118/64 mm[Hg] 10/30/2005 Weight Blood Pressure 68.04 kg 128/60 mm[Hg] 06/20/2005 Height Weight Blood Pressure 152.4 cm 67.59 kg 100/58 mm[Hg] 06/05/2005 Weight Blood Pressure 67.36 kg 120/58 mm[Hg] 02/21/2005 Weight Blood Pressure 67.59 kg 90/52 mm[Hg] 11/11/2004 Weight Blood Pressure 67.7 kg 122/70 mm[Hg]
[2021-07-15] MEDS: Normal Saline Flush 10 ML SYR IVP (08:43)
[2021-07-15 08:47] LABS: Abs Immature Grans 0.34 10^3/uL (0.0-0.06); Absolute Basophil Count 0.08 10^3/uL (0.0-0.2); Absolute Eosinophil Count 0.06 10^3/uL (0.0-0.7); Absolute Monocyte Count 1.21 10^3/uL (0.1-0.8); Absolute Neutrophil Count 3.45 10^3/uL (1.2-6.7); Eosinophils % 0.7; HCT 38.3 % (36.0-46.0); HGB 12.8 g/dL (11.2-15.7); Immature Grans % 4.2; Lymphocytes % 36.1; MCH 30.5 pg (27.0-33.0); MCHC 33.4 % (32.0-36.0); MCV 91.2 fL (80-95); MPV 8.8 fL (8.0-11.0); Nucleated RBC 0 %; Platelet Count 383 10^3/uL (130-400); RDW 14.1 % (11.7-14.6); RDW-SD 46.5 fL; WBC 8.04 10^3/uL (4.4-10.8)
[2021-07-15 09:10] LABS: Magnesium 1.9 mg/dL (1.8-2.4)
[2021-07-15 09:23] LABS: ALT 34 U/L (14-59); AST 18 U/L (15-37); Albumin 3.3 g/dL (3.4-5.0); Alkaline Phosphatase 79 U/L (46-116); Anion Gap 8.3 mmol/L (3-11); BUN 10 mg/dL (7-18); Bilirubin, Total 0.4 mg/dL (0.2-1.0); CO2 27.7 mmol/L (21.0-32.0); CREATININE 0.7 mg/dL (0.55-1.02); Calcium 8.9 mg/dL (8.5-10.1); Chloride 103 mmol/L (98-107); FREE T4 1.38 ng/dL (0.76-1.46); Glucose 107 mg/dL (74-106); Potassium 4.4 mmol/L (3.5-5.1); Sodium 139 mmol/L (136-145); TSH 2.18 uIU/mL (0.36-3.74); Total Protein 6.8 g/dL (6.4-8.2)
[2021-07-15 13:21] LABS: Bilirubin Negative (Negative); Blood Small (Negative); Clarity Cloudy (Clear); Glucose Negative (Negative); Ketones Negative (Negative); Leukocyte Esterase Small (Negative); Nitrite Positive (Negative); Specific Gravity 1.025 (1.005-1.025); Urobilinogen 0.2 EU/dL (Up TO 0.2); pH 5.5 (5-8)
[2021-07-15 13:38] LABS: Epithelial Cells Few HPF (Negative); Other Cells Negative (Negative); RBC 0-2 HPF (0-2); WBC >50 HPF (0-5)
[2021-07-15 13:39] LABS: Bacteria Many HPF (Negative); C & S Indicated? Yes; Casts Negative LPF (Negative); Crystals Negative HPF (Negative); Mucus Trace (Negative)
== END 2021-07-25 23:59 | disposition home or self-care (01) ==
LOC: INF 03:40
PROVIDERS: PCP Internal Medicine; Visit Provider Internal Medicine Medical Oncology
DX: C34.92 Malignant neoplasm of unspecified part of left bronchus or lung (principal); Z79.899 Other long term (current) drug therapy; Z45.2 Encounter for adjustment and management of vascular access device; R30.0 Dysuria; C79.51 Secondary malignant neoplasm of bone
CPT/HCPCS: 36591; 80053; 87077; 81003; 81015; 83735; 84439; 84443; 85025; 87086; 87186

== ENCOUNTER 2021-08-12 02:15 | Outpatient (RCR) | payer MEDICARE, MEDICAID, SELFPAY ==
[2021-08-05 08:34] LABS: Abs Immature Grans 0.05 10^3/uL (0.0-0.06); Absolute Basophil Count 0.06 10^3/uL (0.0-0.2); Absolute Eosinophil Count 0.07 10^3/uL (0.0-0.7); Absolute Lymphocyte Count 1.38 10^3/uL (1.2-3.4); Absolute Neutrophil Count 1.99 10^3/uL (1.2-6.7); Basophils % 1.3; Eosinophils % 1.6; HCT 36.5 % (36.0-46.0); HGB 11.7 g/dL (11.2-15.7); Immature Grans % 1.1; MCH 30.5 pg (27.0-33.0); MCHC 32.1 % (32.0-36.0); MCV 95.3 fL (80-95); MPV 8.8 fL (8.0-11.0); Monocytes % 20.2; Neutrophils % 44.8; Nucleated RBC 0 %; Platelet Count 314 10^3/uL (130-400); RBC 3.83 10^6/uL (3.93-5.22); RDW 15.4 % (11.7-14.6); RDW-SD 52.8 fL; WBC 4.45 10^3/uL (4.4-10.8)
[2021-08-05 08:57] LABS: ALT 28 U/L (14-59); AST 16 U/L (15-37); Albumin 3.6 g/dL (3.4-5.0); Alkaline Phosphatase 73 U/L (46-116); Anion Gap 7.6 mmol/L (3-11); BUN 13 mg/dL (7-18); Bilirubin, Total 0.4 mg/dL (0.2-1.0); CO2 24.4 mmol/L (21.0-32.0); CREATININE 0.9 mg/dL (0.55-1.02); Calcium 8.3 mg/dL (8.5-10.1); Chloride 104 mmol/L (98-107); Estimated GFR 59.65 (mL/min/1.73m2); FREE T4 1.24 ng/dL (0.76-1.46); Glucose 103 mg/dL (74-106); Magnesium 2.2 mg/dL (1.8-2.4); Potassium 4.8 mmol/L (3.5-5.1); Sodium 136 mmol/L (136-145); TSH 3.23 uIU/mL (0.36-3.74); Total Protein 6.6 g/dL (6.4-8.2)
[2021-08-05] MEDS: Normal Saline Flush 10 ML SYR IVP (10:12)
[2021-08-12] MEDS: Normal Saline Flush 10 ML SYR IVP (08:16)
[2021-08-12 08:35] LABS: Abs Immature Grans 0.14 10^3/uL (0.0-0.06); Absolute Basophil Count 0.07 10^3/uL (0.0-0.2); Absolute Eosinophil Count 0.08 10^3/uL (0.0-0.7); Absolute Lymphocyte Count 2.55 10^3/uL (1.2-3.4); Absolute Monocyte Count 0.75 10^3/uL (0.1-0.8); Absolute Neutrophil Count 4.89 10^3/uL (1.2-6.7); Basophils % 0.8; Eosinophils % 0.9; HCT 34.6 % (36.0-46.0); HGB 11.4 g/dL (11.2-15.7); Immature Grans % 1.7; Lymphocytes % 30.1; MCHC 32.9 % (32.0-36.0); MPV 9.1 fL (8.0-11.0); Monocytes % 8.8; Neutrophils % 57.7; Nucleated RBC 0 %; Platelet Count 423 10^3/uL (130-400); RBC 3.68 10^6/uL (3.93-5.22); RDW 14.7 % (11.7-14.6); WBC 8.48 10^3/uL (4.4-10.8)
[2021-08-12 09:05] LABS: ALT 28 U/L (14-59); AST 18 U/L (15-37); Albumin 3.2 g/dL (3.4-5.0); Alkaline Phosphatase 69 U/L (46-116); Anion Gap 7.4 mmol/L (3-11); BUN 7 mg/dL (7-18); Bilirubin, Total 0.4 mg/dL (0.2-1.0); CO2 28.6 mmol/L (21.0-32.0); CREATININE 0.8 mg/dL (0.55-1.02); Calcium 8.6 mg/dL (8.5-10.1); Chloride 102 mmol/L (98-107); FREE T4 1.28 ng/dL (0.76-1.46); Glucose 114 mg/dL (74-106); Potassium 4.2 mmol/L (3.5-5.1); Sodium 138 mmol/L (136-145); TSH 4.56 uIU/mL (0.36-3.74); Total Protein 6.3 g/dL (6.4-8.2)
== END 2021-08-25 23:59 | disposition home or self-care (01) ==
LOC: INF 02:15
PROVIDERS: PCP Internal Medicine; Visit Provider Internal Medicine Medical Oncology
DX: C34.92 Malignant neoplasm of unspecified part of left bronchus or lung (principal); Z79.899 Other long term (current) drug therapy; Z45.2 Encounter for adjustment and management of vascular access device
CPT/HCPCS: 36591; 80053; 83735; 84439; 84443; 85025

== ENCOUNTER 2021-09-23 01:36 | Outpatient (RCR) | payer MEDICARE, MEDICAID, SELFPAY ==
[2021-09-02] MEDS: Normal Saline Flush 10 ML SYR IVP (10:35)
[2021-09-02 11:17] LABS: Abs Immature Grans 0.02 10^3/uL (0.0-0.06); Absolute Basophil Count 0.05 10^3/uL (0.0-0.2); Absolute Lymphocyte Count 2.16 10^3/uL (1.2-3.4); Absolute Monocyte Count 0.63 10^3/uL (0.1-0.8); Absolute Neutrophil Count 4.48 10^3/uL (1.2-6.7); Basophils % 0.7; Eosinophils % 3.9; HCT 36.4 % (36.0-46.0); HGB 11.7 g/dL (11.2-15.7); Immature Grans % 0.3; Lymphocytes % 28.3; MCH 30.7 pg (27.0-33.0); MCHC 32.1 % (32.0-36.0); MCV 95.5 fL (80-95); MPV 9.8 fL (8.0-11.0); Monocytes % 8.2; Neutrophils % 58.6; Nucleated RBC 0 %; Platelet Count 348 10^3/uL (130-400); RBC 3.81 10^6/uL (3.93-5.22); RDW 13.7 % (11.7-14.6); RDW-SD 48.9 fL; WBC 7.64 10^3/uL (4.4-10.8)
[2021-09-02 11:37] LABS: ALT 25 U/L (14-59); AST 15 U/L (15-37); Albumin 3.2 g/dL (3.4-5.0); Alkaline Phosphatase 63 U/L (46-116); Anion Gap 6.8 mmol/L (3-11); BUN 8 mg/dL (7-18); Bilirubin, Total 0.4 mg/dL (0.2-1.0); CO2 29.2 mmol/L (21.0-32.0); CREATININE 0.6 mg/dL (0.55-1.02); Calcium 8.5 mg/dL (8.5-10.1); Chloride 109 mmol/L (98-107); FREE T4 1.29 ng/dL (0.76-1.46); Glucose 106 mg/dL (74-106); Potassium 3.4 mmol/L (3.5-5.1); Sodium 145 mmol/L (136-145); TSH 1.51 uIU/mL (0.36-3.74); Total Protein 6.4 g/dL (6.4-8.2)
[2021-09-23 10:29] LABS: Abs Immature Grans 0.03 10^3/uL (0.0-0.06); Absolute Basophil Count 0.04 10^3/uL (0.0-0.2); Absolute Eosinophil Count 0.21 10^3/uL (0.0-0.7); Absolute Lymphocyte Count 2.63 10^3/uL (1.2-3.4); Absolute Monocyte Count 0.77 10^3/uL (0.1-0.8); Absolute Neutrophil Count 6.59 10^3/uL (1.2-6.7); Basophils % 0.4; HCT 37.2 % (36.0-46.0); Immature Grans % 0.3; Lymphocytes % 25.6; MCH 30.2 pg (27.0-33.0); MCHC 32.3 % (32.0-36.0); MCV 93.5 fL (80-95); MPV 9.2 fL (8.0-11.0); Monocytes % 7.5; Neutrophils % 64.2; Nucleated RBC 0 %; Platelet Count 440 10^3/uL (130-400); RBC 3.98 10^6/uL (3.93-5.22); RDW 12.7 % (11.7-14.6); RDW-SD 43.7 fL; WBC 10.27 10^3/uL (4.4-10.8)
[2021-09-23 10:53] LABS: ALT 31 U/L (14-59); AST 21 U/L (15-37); Albumin 3.3 g/dL (3.4-5.0); Alkaline Phosphatase 72 U/L (46-116); Anion Gap 6.8 mmol/L (3-11); BUN 12 mg/dL (7-18); Bilirubin, Total 0.4 mg/dL (0.2-1.0); CO2 26.2 mmol/L (21.0-32.0); CREATININE 0.7 mg/dL (0.55-1.02); Calcium 8.4 mg/dL (8.5-10.1); Chloride 104 mmol/L (98-107); FREE T4 1.25 ng/dL (0.76-1.46); Glucose 104 mg/dL (74-106); Magnesium 1.9 mg/dL (1.8-2.4); Potassium 4.2 mmol/L (3.5-5.1); Sodium 137 mmol/L (136-145); TSH 3.11 uIU/mL (0.36-3.74); Total Protein 6.5 g/dL (6.4-8.2)
[2021-09-23] MEDS: Normal Saline Flush 10 ML SYR IVP (11:09)
== END 2021-09-24 23:59 | disposition home or self-care (01) ==
LOC: INF 01:36
PROVIDERS: PCP Internal Medicine; Visit Provider Internal Medicine Medical Oncology
DX: C34.92 Malignant neoplasm of unspecified part of left bronchus or lung (principal); Z79.899 Other long term (current) drug therapy; Z45.2 Encounter for adjustment and management of vascular access device
CPT/HCPCS: 36591; 80053; 83735; 84439; 84443; 85025

== ENCOUNTER 2021-10-21 03:25 | Outpatient (RCR) | payer MEDICARE, MEDICAID, SELFPAY ==
[2021-10-21] MEDS: Normal Saline Flush 10 ML SYR IVP (10:30)
[2021-10-21 10:52] LABS: Abs Immature Grans 0.03 10^3/uL (0.0-0.06); Absolute Basophil Count 0.05 10^3/uL (0.0-0.2); Absolute Eosinophil Count 0.18 10^3/uL (0.0-0.7); Absolute Lymphocyte Count 1.94 10^3/uL (1.2-3.4); Absolute Monocyte Count 0.83 10^3/uL (0.1-0.8); Absolute Neutrophil Count 6.43 10^3/uL (1.2-6.7); Basophils % 0.5; Eosinophils % 1.9; HCT 39.2 % (36.0-46.0); HGB 12.8 g/dL (11.2-15.7); Immature Grans % 0.3; Lymphocytes % 20.5; MCH 29.3 pg (27.0-33.0); MCHC 32.7 % (32.0-36.0); MCV 89.7 fL (80-95); Monocytes % 8.8; Nucleated RBC 0 %; Platelet Count 566 10^3/uL (130-400); RBC 4.37 10^6/uL (3.93-5.22); RDW 12.4 % (11.7-14.6); RDW-SD 40.8 fL; WBC 9.46 10^3/uL (4.4-10.8)
[2021-10-21 11:14] LABS: ALT 19 U/L (14-59); AST 15 U/L (15-37); Albumin 3.2 g/dL (3.4-5.0); Alkaline Phosphatase 86 U/L (46-116); Anion Gap 7.8 mmol/L (3-11); BUN 10 mg/dL (7-18); Bilirubin, Total 0.6 mg/dL (0.2-1.0); CO2 24.2 mmol/L (21.0-32.0); CREATININE 0.7 mg/dL (0.55-1.02); Calcium 8.6 mg/dL (8.5-10.1); Chloride 95 mmol/L (98-107); Glucose 118 mg/dL (74-106); Potassium 4.4 mmol/L (3.5-5.1); Sodium 127 mmol/L (136-145); TSH 3.41 uIU/mL (0.36-3.74); Total Protein 6.6 g/dL (6.4-8.2)
== END 2021-10-25 23:59 | disposition home or self-care (01) ==
LOC: INF 03:25
PROVIDERS: PCP Internal Medicine; Visit Provider Internal Medicine Medical Oncology
DX: C34.92 Malignant neoplasm of unspecified part of left bronchus or lung (principal); Z79.899 Other long term (current) drug therapy; Z45.2 Encounter for adjustment and management of vascular access device
CPT/HCPCS: 36591; 80053; 83735; 84439; 84443; 85025